=== PATIENT | female | born 1990 | race Hispanic/Latino ===

== ENCOUNTER 2017-11-02 20:00 | Emergency (ER) | payer OTHER, SELFPAY ==
[2017-11-02] VITALS (8 sets, daily range): BP systolic 103–125; BP diastolic 53–77; PULSE 96–108; RESP 17–20; TEMP 37.9–38.7; O2SAT 99–100; BMI 20.6
--- NOTE | 2017-11-02 20:17 | DI.RAD.S_ITS ---
PROCEDURE: XR CHEST 1V INDICATIONS: fever TECHNIQUE: One view of the chest was acquired. COMPARISON: [facility], , CHEST 1 VIEW, 06/28/2017, 3:45. FINDINGS: Surgical changes and devices: None. Lungs and pleura: No pleural effusions or pneumothorax. Lungs are clear. Mediastinum: Mediastinal contours appear normal. Heart size is normal. Bones and chest wall: No suspicious bony lesions. Overlying soft tissues appear unremarkable. IMPRESSION: 1. No acute cardiopulmonary disease. Dictated by: Joao Yip M.D. on 11/02/2017 at 21:00 Approved by: Joao Yip M.D. on 11/02/2017 at 21:00
--- NOTE | 2017-11-02 20:50 | ED_ITS ---
HPI - Fever General Chief Complaint: Fever Stated Complaint: FEVER/LIVER TRANSPLANT Time Seen by Provider: 11/02/17 20:17 Source: patient Mode of arrival: ambulatory Limitations: no limitations History of Present Illness HPI Narrative: Patient with history of liver transplant on tacrolimus presents to the emergency department with sudden onset fever this afternoon in the absence of any other significant symptoms. She does feel bit achy but denies any runny nose, sore throat or cough. She has had no chest pain or shortness of breath. She denies abdominal pain. She has had no dysuria, frequency or urgency. She did recently travel to [facility] for a wedding and did not wear a mask on the airplane. Just prior to her travel she had surgical procedure at [facility] to dilate a stenosed hepatic artery complaint: fever and malaise Onset (ago): hour(s) Maximum Temperature: 101.6 F Temperature Source: oral Context: recent travel and recent procedure Associated symptoms: chills and myalgias Relieving factors: nothing Exacerbating factors: nothing Treatments prior to arrival fever: acetaminophen Related Data Home Medications Medication Instructions Recorded Confirmed aspirin 325 mg PO QDAY #0 05/08/17 11/02/17 cholecalciferol (vitamin D3) 2,000 unit PO QDAY #0 05/08/17 11/02/17 [Vitamin D3] clopidogrel 75 mg PO QDAY #0 05/08/17 11/02/17 etonogestrel [Nexplanon] 68 mg SUBDERMAL ONCE PM #0 05/08/17 11/02/17 ferrous sulfate [Iron (ferrous 325 mg PO QDAY #0 05/08/17 11/02/17 sulfate)] multivitamin [Multiple Vitamins] 1 tab PO QDAY #0 05/08/17 11/02/17 tacrolimus 3.5 cap PO Q12H #0 05/08/17 11/02/17 enoxaparin 60 mg SUB-Q Q12H 11/02/17 11/02/17 magnesium oxide-Mg AA chelate 133 mg PO BID 11/02/17 11/02/17 [Ii-Frei-Frxpvdo] nitrofurantoin macrocrystal 100 mg PO BEDTIME PRN 11/02/17 11/02/17 [Macrodantin] ursodiol 250 mg PO TIDWM 05/28/18 05/28/18 Previous Rx's Medication Instructions Recorded levofloxacin [Levaquin] 500 mg PO Q24H 7 Days #7 tab 11/02/17 Allergies Allergy/AdvReac Type Severity Reaction Status Date / Time vancomycin [VANCOMYCIN] AdvReac Unknown [facility] Unverified 09/16/17 12:49 UNLESS USED AT HALF THE RATE Review of Systems Review of Systems All systems reviewed & are unremarkable except as noted in HPI and below Constitutional Reports chills, Reports fever(s), Denies lethargy and Denies weakness Eyes Denies change in vision, Denies eye discharge, Denies irritation and Denies loss of vision ENT Ears, Nose, Mouth, and Throat: Denies change in voice, Denies neck pain and Denies sore throat Cardiovascular Denies chest pain, Denies irregular heart rhythm, Denies lightheadedness, Denies palpitations, Denies dyspnea, Denies dyspnea on exertion and Denies orthopnea Respiratory Denies cough, Denies dyspnea, Denies dyspnea on exertion and Denies wheezing Gastrointestinal Gastrointestinal: Denies abdominal pain, Denies change in bowel habits, Denies diarrhea, Denies nausea and Denies vomiting Genitourinary Denies hematuria, Denies flank pain, Denies urinary incontinence and Denies urinary urgency Musculoskeletal Denies neck pain Integumentary/Breasts Denies pruritus, Denies erythema, Denies rash and Denies wounds Neurologic Denies confusion, Denies loss of vision and Denies weakness Psychiatric Denies anxiety, Denies confusion, Denies depression, Denies homicidal ideation and Denies suicidal ideation Endocrine Denies palpitations Hematologic/Lymphatic Denies easy bruising Allergic/Immunologic Denies wheezing PFSH Medical History Biliary atresia (Acute) Social History Smoking Status: Never smoker Exam Narrative Exam Narrative: Pleasant 27-year-old female in no significant or obvious distress Initial Vital Signs Initial Vital Signs: Vital Signs Temperature 101.6 F H 11/02/17 20:13 Pulse Rate 108 H 11/02/17 20:13 Respiratory Rate 20 11/02/17 20:13 Blood Pressure 125/77 H 11/02/17 20:13 Pulse Oximetry 99 11/02/17 20:13 Const General: cooperative and well developed Nutritional Appearance: well nourished Orientation: alert, awake, oriented x3 and not confused [facility] Head: normocephalic and atraumatic Ears: external ears normal and TM's normal bilaterally Nose: external nose normal and No nasal discharge Face and sinus: sinuses nontender, face symmetric, no sinus tenderness and No dry mucous membranes Mouth: oral mucosae normal and moist mucous membranes Teeth and gingiva: dentition normal Throat: tonsils normal and uvula midline Eyes General: appearance normal, both eyes and all related structures Eyelids: eyelids normal Conjunctivae: conjunctivae normal Sclera: sclerae normal Pupils: PERRL EOM: EOM intact bilaterally Resp Effort & Inspection: normal respiratory effort, able to speak in complete sentences, no respiratory distress and no use of accessory muscles Auscultation: clear to auscultation bilaterally, no rales, no rhonchi and no wheezes Cardio Rate: regular rate Rhythm: regular rhythm Heart Sounds: no click, no gallops, no murmurs and no rubs Pulses: normal peripheral pulses GI Inspection: non-distended Palpation: soft, no hepatosplenomegaly, No guarding, No pulsatile mass and No tender Auscultation: normal bowel sounds Back/Spine/Pelvis Back: No CVA tenderness Cervical Spine: cervical ROM normal and No pain with cervical ROM Thoracic/Lumbar Spine: thoracic and lumbar spine normal to inspection Skin General: no rashes or lesions noted, No jaundice and No petechiae Neuro General: alert, oriented x3, gait normal and no focal motor deficits Speech: speech normal Extrem General: full ROM, no clubbing, cyanosis or edema, no pedal edema and no calf tenderness Psych Appearance: well kempt Mental Status: mental status grossly normal Attitude: cooperative Thought Content: normal and suicidality Judgment: judgment good Course Orders Ordered: ED Orders 11/02/17 20:15 Alkaline Phosphatase Stat 11/02/17 20:17 XR chest 1V Stat 11/02/17 20:40 Alanine Aminotransferase Stat Aspartate Aminotransferase Stat Basic Metabolic Panel Stat Bilirubin Total Stat Complete Blood Count AUTO DIFF Stat Lactate (Lactic Acid) Stat Lipase Stat Procalcitonin Stat 11/02/17 20:55 Urine Microscopic Stat 11/02/17 21:20 Blood Culture Stat 11/02/17 22:28 US abdomen limited Stat Discontinued Medications Sodium Chloride (Normal Saline 0.9%) 1,000 mls @ 1,000 mls/hr IV BOLUS ONE Stop: 11/02/17 22:58 Last Infusion: 11/02/17 22:43 Dose: 0 mls/hr Admin: 11/02/17 22:08 Dose: 1,000 mls/hr Levofloxacin (Levaquin) 500 mg PO NOW ONE Stop: 11/02/17 22:43 Last Admin: 11/02/17 23:10 Dose: 500 mg Ondansetron HCl (Zofran) 4 mg IV NOW ONE Stop: 11/02/17 20:56 Last Admin: 11/02/17 21:12 Dose: 4 mg Reevaluation(s) Reevaluation #1: patient feeling better, no nausea, still achy Time: 22:19 Consultations Consultation #1: call to [facility] Hepatology. He recommends performing an abdominal ultrasound and administering antibiotics such as Levaquin. In the event the ultrasound is normal patient can go home on a prescription and call the patient service coordinator tomorrow for follow-up Time: 22:19 Vital Signs - 8 hr 11/02/17 21:04 11/02/17 21:30 11/02/17 22:07 Temperature 100.2 F H Pulse Rate 98 H 102 H 105 H Respiratory Rate 20 18 18 Blood Pressure [Right Arm] 125/75 H 118/62 109/64 Pulse Oximetry 100 99 99 11/02/17 22:30 11/02/17 23:01 11/02/17 23:30 Temperature 101.2 F H Pulse Rate 102 H 96 H 99 H Respiratory Rate 18 17 20 Blood Pressure [Right Arm] 119/70 103/53 L 113/67 Pulse Oximetry 99 99 99 MDM - Fever Differential Diagnosis Likely fever of unknown origin, pyelonephritis, viral infection and sepsis Medical Records Attestation: I reviewed the patient's medical records. Lab Data Attestation: I reviewed the patient's lab results. Result diagrams: 11/02/17 20:40 11/02/17 20:40 Lab Results 11/02/17 11/02/17 11/02/17 Range/Units 20:15 20:40 20:40 WBC 8.6 (4.5-11.0) X10^3/uL RBC 3.68 L (4.0-5.2) X10^6/uL Hgb 10.4 L (12.0-16.0) g/dL Hct 31.0 L (36-46) % MCV 84.2 (80-100) fL MCH 28.3 (26-34) PG MCHC 33.5 (30-36) % RDW 14.8 (11.6-14.8) % Plt Count 242 (150-400) X10^3/uL Neut % (Auto) 82.5 H (50-75) % Lymph % (Auto) 7.3 L (25-40) % [place] % (Auto) 9.6 (3-14) % Eos % (Auto) 0.3 L (2-4) % Baso % (Auto) 0.3 (0-2) % Neut # (Auto) 7100 H (2284-0058) /uL Sodium (137-145) mmol/L Potassium (3.4-5.1) mmol/L Chloride (98-107) mmol/L Carbon Dioxide (22-32) mmol/L BUN (7-17) mg/dL Creatinine (0.52-1.04) mg/dL Estimated GFR (>60) mL/min BUN/Creatinine Ratio (6-22) Glucose (70-100) mg/dL Lactate (0.7-2.1) mmol/L Calcium (8.4-10.2) mg/dL Total Bilirubin (0.2-1.3) mg/dL AST (14-36) IU/L ALT (9-52) IU/L Alkaline Phosphatase 246 H (38-126) U/L Lipase (23-300) U/L Procalcitonin 0.09 (<0.5) ng/mL Urine RBC (0-5/HPF) Urine WBC (0-5/HPF) Ur Squamous Epith Cells Urine Bacteria (None) Ur Culture Indicated? Micro UA Comment 11/02/17 11/02/17 11/02/17 Range/Units 20:40 20:40 20:55 WBC (4.5-11.0) X10^3/uL RBC (4.0-5.2) X10^6/uL Hgb (12.0-16.0) g/dL Hct (36-46) % MCV (80-100) fL MCH (26-34) PG MCHC (30-36) % RDW (11.6-14.8) % Plt Count (150-400) X10^3/uL Neut % (Auto) (50-75) % Lymph % (Auto) (25-40) % [place] % (Auto) (3-14) % Eos % (Auto) (2-4) % Baso % (Auto) (0-2) % Neut # (Auto) (7289-4505) /uL Sodium 139 (137-145) mmol/L Potassium 4.1 (3.4-5.1) mmol/L Chloride 103 (98-107) mmol/L Carbon Dioxide 24 (22-32) mmol/L BUN 11 (7-17) mg/dL Creatinine 0.60 (0.52-1.04) mg/dL Estimated GFR > 60.0 (>60) mL/min BUN/Creatinine Ratio 18.3 (6-22) Glucose 95 (70-100) mg/dL Lactate 0.7 (0.7-2.1) mmol/L Calcium 9.5 (8.4-10.2) mg/dL Total Bilirubin 1.0 (0.2-1.3) mg/dL AST 48 H (14-36) IU/L ALT 51 (9-52) IU/L Alkaline Phosphatase (38-126) U/L Lipase 26 (23-300) U/L Procalcitonin (<0.5) ng/mL Urine RBC None seen (0-5/HPF) Urine WBC None seen (0-5/HPF) Ur Squamous Epith Cells 1-5 /hpf Urine Bacteria Occasional (0-1) (None) Ur Culture Indicated? Cult not indicated Micro UA Comment Not Reportable Imaging Data Chest x-ray: Attestation: I personally reviewed and interpreted this imaging study as follows: Radiologist's impression: No acute process US - abdomen: Radiologist's impression: No acute process MDM Narrative Medical decision making narrative: Patient presents with low-grade fever today in the absence of other symptoms such as headache, sore throat here pain, chest pain or shortness of breath. She has recent travel that exposure to various common viral infections on an airplane. Her labs are unremarkable as is imaging and her physical exam. Conversation with hepatology and I are in agreement regarding likely benign cause of her fever. Given use of tacrolimus will place on ABX and encourage close outpatient followup Discharge Plan Departure Patient Disposition: Home, Self-Care Clinical Impression: Fever Discharge Date/Time: 11/03/17 00:05 Interventions: ED Discharge Assessment Last Done: 11/03/17 00:27 Instructions: DI for Fever (Symptom) -- Adult Prescriptions: New levofloxacin [Levaquin] 500 mg tablet 500 mg PO Q24H 7 Days Qty: 7 RF: 0 No Action tacrolimus 1 MG capsule 3.5 cap PO Q12H Qty: 0 RF: 0 multivitamin [Multiple Vitamins] 1 EACH tablet 1 tab PO QDAY Qty: 0 RF: 0 etonogestrel [Nexplanon] 68 MG implant 68 mg Subdermal ONCE PM Qty: 0 RF: 0 ferrous sulfate [Iron (ferrous sulfate)] 325 MG tablet 325 mg PO QDAY Qty: 0 RF: 0 cholecalciferol (vitamin D3) [Vitamin D3] 2,000 UNIT capsule 2,000 unit PO QDAY Qty: 0 RF: 0 aspirin 325 MG tablet 325 mg PO QDAY Qty: 0 RF: 0 clopidogrel 75 MG tablet 75 mg PO QDAY Qty: 0 RF: 0 nitrofurantoin macrocrystal [Macrodantin] 100 mg Capsule 100 mg PO BEDTIME PRN (Reason: Sexual Activity) RF: 0 ursodiol 250 mg Tablet 250 mg PO TIDWM RF: 0 enoxaparin 60 mg/0.6 mL Syringe 60 mg SUB-Q Q12H RF: 0 magnesium oxide-Mg AA chelate [[id number]] 133 mg Tablet 133 mg PO BID RF: 0
[2017-11-02 21:00] LABS: Add Manual Diff / Slide Review NO; Basophils Percent Auto 0.3 % (0-2); Eosinophils Percent Auto 0.3 % (2-4); Hemoglobin 10.4 g/dL (12.0-16.0); Lymphocytes Percent Auto 7.3 % (25-40); Mean Corpuscular HGB Conc 33.5 % (30-36); Mean Corpuscular Hemoglobin 28.3 PG (26-34); Mean Corpuscular Volume 84.2 fL (80-100); Monocytes Percent Auto 9.6 % (3-14); Neutrophils Absolute Auto 7100 /uL (3000-5900); Neutrophils Percent Auto 82.5 % (50-75); Platelet Count 242 X10^3/uL (150-400); Red Blood Cell Count 3.68 X10^6/uL (4.0-5.2); Red Cell Distribution Width 14.8 % (11.6-14.8); White Blood Cell Count 8.6 X10^3/uL (4.5-11.0)
[2017-11-02 21:11] LABS: RBC Urine None Seen (0-5/HPF); WBC Urine None Seen (0-5/HPF)
[2017-11-02 21:12] LABS: Lactate (Lactic Acid) 0.7 mmol/L (0.7-2.1)
[2017-11-02] MEDS: ONDANSETRON 4 MG/2 ML INJ IV (21:12)
[2017-11-02 21:17] LABS: Alanine Aminotransferase 51 IU/L (9-52); Aspartate Aminotransferase 48 IU/L (14-36); BUN Creatinine Ratio 18.3 (6-22); Blood Urea Nitrogen 11 mg/dL (7-17); Calcium 9.5 mg/dL (8.4-10.2); Carbon Dioxide 24 mmol/L (22-32); Chloride 103 mmol/L (98-107); Estimated Glomerular Filt Rate > 60.0 mL/min (>60); Glucose 95 mg/dL (70-100); HEMOLYSIS < 15 (0-50); Lipase 26 U/L (23-300); Potassium 4.1 mmol/L (3.4-5.1); Sodium 139 mmol/L (137-145)
[2017-11-02 21:30] LABS: Alkaline Phosphatase 246 U/L (38-126)
[2017-11-02 21:33] LABS: Procalcitonin 0.09 ng/mL (<0.5)
[2017-11-02 21:38] LABS: Squamous Epithelial Cell Urine 1-5 /HPF
[2017-11-02 21:39] LABS: Bacteria Urine Occasional (0-1); Culture Indicated Urine Cult Not Indicated
[2017-11-02] MEDS: SODIUM CHLORIDE 0.9% 1,000 ML 1000 ML IV (22:08)
--- NOTE | 2017-11-02 22:28 | DI.US.S_ITS ---
PROCEDURE: US ABDOMEN COMPLETE COMPARISON: [facility], US, ABDOMEN COMPLETE, 06/29/2017, 11:43. INDICATIONS: fever, hx Liver transplant FINDINGS: Liver is normal in size and echogenicity measures 17.8 cm in length. No focal hepatic abnormalities. Doppler assessment demonstrates patency of the main portal vein measuring 1.2 cm. Right and left portal veins patent. Mid and right hepatic vein patent and the left hepatic vein is not visualized. Hepatic artery also not visualized. Splenic vein is patent. IMPRESSION: Limited exam demonstrating normal appearance of the liver with Doppler assessment as above. Dictated by: [facility] Interpreted: Erwin Wood MD on 11/03/2017 at 8:18 Approved by: Erwin Wood M.D. on 11/03/2017 at 13:21
--- NOTE | 2017-11-02 22:42 | PC.NURSE ---
pt took her own scheduled medication for 2100 dose of tacrolimus which her spouse brought from home.
[2017-11-02] MEDS: levoFLOXacin 500 MG TABLET PO (23:10)
== END 2017-11-03 00:05 | disposition home or self-care (01) ==
PROVIDERS: Emergency Provider Emergency Medicine; PCP Internal Medicine Transplant Hepatology
DX: R50.9 Fever, unspecified (principal); Z94.4 Liver transplant status
CPT/HCPCS: 36415; 36591; 71045; 76705; 80048; 81003; 81015; 81025; 82247; 83605; 83690; 84075; 84145; 84450; 84460; 85025; 87040; 96361; 96374; 99284; J2405

== ENCOUNTER 2018-06-24 20:05 | Emergency (ER) | payer OTHER, SELFPAY ==
[2018-06-24 20:07] VITALS: BP 122/84; PULSE 85; RESP 15; TEMP 36.7; O2SAT 100
[2018-06-24 21:06] VITALS: BP 122/84; PULSE 85; RESP 15; TEMP 36.7; O2SAT 100
[2018-06-24 22:06] LABS: Add Manual Diff / Slide Review NO; Basophils Absolute Auto 0 /uL (0-100); Basophils Percent Auto 0.4 % (0-2); Eosinophils Absolute Auto 0 /uL (0-450); Eosinophils Percent Auto 0.6 % (2-4); Lymphocytes Absolute Auto 1600 /uL (1100-4500); Lymphocytes Percent Auto 19.7 % (25-40); Mean Corpuscular Hemoglobin 25.3 PG (26-34); Mean Corpuscular Volume 79.1 fL (80-100); Monocytes Absolute Auto 500 /uL (0-900); Monocytes Percent Auto 6.4 % (3-14); Neutrophils Absolute Auto 5900 /uL (1500-7000); Neutrophils Percent Auto 72.9 % (50-75); Platelet Count 241 X10^3/uL (150-400); Red Blood Cell Count 3.53 X10^6/uL (4.0-5.2); Red Cell Distribution Width 13.9 % (11.6-14.8); White Blood Cell Count 8.1 X10^3/uL (4.5-11.0)
[2018-06-24 22:08] LABS: INR 1.1 (0.9-1.3); Prothrombin Time 12.7 SECONDS (10.1-12.7)
[2018-06-24 22:10] LABS: PTT Partial Thromboplastin Tim 32 SECONDS (26.4-36.2)
[2018-06-24 22:12] LABS: Alanine Aminotransferase 56 IU/L (9-52); Albumin 3.9 g/dL (3.5-5.0); Albumin Globulin Ratio 1.6 (1.0-2.8); Alkaline Phosphatase 97 U/L (38-126); Aspartate Aminotransferase 77 IU/L (14-36); BUN Creatinine Ratio 18.6 (6-22); Bilirubin Total 0.2 mg/dL (0.2-1.3); Blood Urea Nitrogen 13 mg/dL (7-17); Calcium 8.9 mg/dL (8.4-10.2); Carbon Dioxide 24 mmol/L (22-32); Chloride 105 mmol/L (98-107); Estimated Glomerular Filt Rate > 60.0 mL/min (>60); Globulin 2.4 g/dL (1.7-4.1); Glucose 92 mg/dL (70-100); HEMOLYSIS < 15 (0-50); Lipase 52 U/L (23-300); Potassium 3.9 mmol/L (3.4-5.1); Sodium 139 mmol/L (137-145); Total Protein 6.3 g/dL (6.3-8.2)
--- NOTE | 2018-06-24 22:25 | DI.US.S_ITS ---
PROCEDURE: US VISCERAL DOPPLER LIMITED INDICATIONS: abdominal pain/elevated LFT's/liver transplant TECHNIQUE: Real-time scanning was performed of the abdominal and retroperitoneal organs, with image documentation. Color and pulse Doppler interrogation was also performed of the hepatic and splenic vessels, or of the lesion of interest. COMPARISON: [facility], , VISCERAL DOPPLER LIMITED, 05/08/2017, 19:46. FINDINGS: Liver: The transplant liver is homogeneous in echotexture and measures up to 15.5 cm in transverse dimension. Doppler: Main portal vein is patent, with luminal diameter of 10 mm (normal of 13-16 mm). On pulse Doppler interrogation, portal vein flow direction is hepatopetal. The left portal vein is not visualized. Hepatic artery Doppler waveforms demonstrate normal systolic upstrokes. The main and right veins are all patent, with expected triphasic Doppler waveforms. The left hepatic vein was not visualized. Of note, the hepatic arterial stent could not be visualized on today's examination. The splenic vein demonstrates normal flow and Doppler waveforms. Biliary ducts: No intrahepatic biliary ductal dilatation. Miscellaneous: No free abdominal fluid. IMPRESSION: 1. Normal flow identified in the main, right, and mid portal vein. The left portal vein was not visualized. 2. Normal flow in the hepatic artery. However, the stent cannot be visualized within the visualized portion of the hepatic artery. 3. Normal flow identified in the main and right hepatic veins. The left hepatic vein was not visualized. 4. Normal appearance of flow to and from the imaged transplanted liver. 5. Normal flow identified within the splenic vein. Dictated by: Balaji Augustine M.D. on 06/25/2018 at 8:53 Approved by: Balaji Augustine M.D. on 06/25/2018 at 9:26
[2018-06-24 23:28] VITALS: BP 122/70; PULSE 69; RESP 19; O2SAT 96
--- NOTE | 2018-06-28 20:23 | ED.ABDPAIN ---
HPI - Abdominal Pain General Chief Complaint: Abdominal Pain Stated Complaint: CHEST PAIN Time Seen by Provider: 06/24/18 20:53 Source: patient and family Mode of arrival: ambulatory Limitations: no limitations History of Present Illness HPI narrative: patient presents the emergency department complaining of upper abdominal pain. She denies nausea, vomiting, chest pain, shortness of breath, jaundice, fevers, diarrhea, dysuria, or back pain. She states she is mainly here because she has a history of a liver transplant, and has had cholangitis previously, among other complications. She states she was told that if she ever felt as though she was having pain in the area of her liver, she should come to the emergency department and be checked. Patient states that her liver enzymes have been normal except when she has had cholangitis. No other complaints at this time. Pain is a 4/10 currently. Related Data Home Medications Medication Instructions Recorded Confirmed aspirin 325 mg PO QDAY #0 05/08/17 11/02/17 cholecalciferol (vitamin D3) 2,000 unit PO QDAY #0 05/08/17 11/02/17 [Vitamin D3] clopidogrel 75 mg PO QDAY #0 05/08/17 11/02/17 etonogestrel [Nexplanon] 68 mg SUBDERMAL ONCE PM #0 05/08/17 11/02/17 ferrous sulfate [Iron (ferrous 325 mg PO QDAY #0 05/08/17 11/02/17 sulfate)] multivitamin [Multiple Vitamins] 1 tab PO QDAY #0 05/08/17 11/02/17 tacrolimus 3.5 cap PO Q12H #0 05/08/17 11/02/17 enoxaparin 60 mg SUB-Q Q12H 11/02/17 11/02/17 magnesium oxide-Mg AA chelate 133 mg PO BID 11/02/17 11/02/17 [Pl-Ieqe-Vubqwds] nitrofurantoin macrocrystal 100 mg PO BEDTIME PRN 11/02/17 11/02/17 [Macrodantin] ursodiol 250 mg PO TIDWM 11/02/17 11/02/17 Allergies Allergy/AdvReac Type Severity Reaction Status Date / Time levofloxacin [From Levaquin] Allergy Verified 06/24/18 20:06 vancomycin [VANCOMYCIN] AdvReac Unknown RED MAN'S Verified 06/24/18 20:06 UNLESS USED AT HALF THE RATE Review of Systems Constitutional Denies chills, Denies fever(s), Denies lethargy and Denies weakness Eyes Denies change in vision, Denies eye discharge, Denies irritation and Denies loss of vision ENT Ears, Nose, Mouth, and Throat: Denies change in voice, Denies neck pain and Denies sore throat Cardiovascular Denies chest pain, Denies irregular heart rhythm, Denies lightheadedness, Denies palpitations, Denies dyspnea, Denies dyspnea on exertion and Denies orthopnea Respiratory Denies cough, Denies dyspnea, Denies dyspnea on exertion and Denies wheezing Gastrointestinal Gastrointestinal: Reports abdominal pain, Denies change in bowel habits, Denies diarrhea, Denies nausea and Denies vomiting Genitourinary Denies hematuria, Denies flank pain, Denies urinary incontinence and Denies urinary urgency Musculoskeletal Denies neck pain Integumentary/Breasts Denies pruritus, Denies erythema, Denies rash and Denies wounds Neurologic Denies confusion, Denies loss of vision and Denies weakness Psychiatric Denies anxiety, Denies confusion, Denies depression, Denies homicidal ideation and Denies suicidal ideation Endocrine Denies palpitations Hematologic/Lymphatic Denies easy bruising Allergic/Immunologic Denies wheezing [facility] Medical History Biliary atresia (Acute) Surgical History Liver transplanted (Acute) Social History Smoking Status: Never smoker Exam Initial Vital Signs Initial Vital Signs: Vital Signs Temperature 98.1 F 06/24/18 20:07 Pulse Rate 85 06/24/18 20:07 Respiratory Rate 15 06/24/18 20:07 Blood Pressure 122/84 06/24/18 20:07 Pulse Oximetry 100 06/24/18 20:07 Const General: cooperative and well developed Nutritional Appearance: well nourished Orientation: alert, awake, oriented x3 and not confused [facility] Head: normocephalic and atraumatic Ears: external ears normal and TM's normal bilaterally Nose: external nose normal and No nasal discharge Face and sinus: sinuses nontender, face symmetric, no sinus tenderness and No dry mucous membranes Mouth: oral mucosae normal and moist mucous membranes Teeth and gingiva: dentition normal Throat: tonsils normal and uvula midline Eyes General: appearance normal, both eyes and all related structures Eyelids: eyelids normal Conjunctivae: conjunctivae normal Sclera: sclerae normal Pupils: PERRL EOM: EOM intact bilaterally Neck Neck: normal visual inspection, trachea midline, No lymphadenopathy, No midline deformity and No JVD Lymphatic: No lymphedema Chest Chest: normal inspection of the chest Resp Effort & Inspection: normal respiratory effort, able to speak in complete sentences, no respiratory distress and no use of accessory muscles Auscultation: clear to auscultation bilaterally, no rales, no rhonchi and no wheezes Cardio Rate: regular rate Rhythm: regular rhythm Heart Sounds: no click, no gallops, no murmurs and no rubs Pulses: normal peripheral pulses GI Inspection: non-distended Palpation: soft, no hepatosplenomegaly, No guarding, No pulsatile mass and tender ( mild, upper abdomen generally) Back/Spine/Pelvis Back: No CVA tenderness Cervical Spine: cervical ROM normal and No pain with cervical ROM Thoracic/Lumbar Spine: thoracic and lumbar spine normal to inspection Skin General: no rashes or lesions noted, No jaundice and No petechiae Neuro General: alert, oriented x3, gait normal and no focal motor deficits Speech: speech normal Extrem General: full ROM, no clubbing, cyanosis or edema, no pedal edema and no calf tenderness Psych Appearance: well kempt Mental Status: mental status grossly normal Attitude: cooperative Thought Content: normal and suicidality Judgment: judgment good Course Course Narrative: Patient declined symptomatic intervention in the emergency department, and preferred to be worked up at this point in time. Labs were performed, and patient was found to have mildly elevated LFTs. I spoke with Dr. Pollard, the patient's cleaner assistant, and he stated that he felt that at this time the patient could be discharged home, but should follow up with his office tomorrow. He also requested blood cultures which we did draw. I discussed all this with the patient and her , who were agreeable to this plan. We have discussed the usual indications for return. MDM - Abdominal Pain Medical Records Attestation: I reviewed the patient's medical records. Lab Data Attestation: I reviewed the patient's lab results. Result diagrams: 06/24/18 20:40 06/24/18 20:40 Lab Results 06/24/18 06/24/18 06/24/18 Range/Units 20:40 20:40 20:40 WBC 8.1 (4.5-11.0) X10^3/uL RBC 3.53 L (4.0-5.2) X10^6/uL Hgb 9.0 L (12.0-16.0) g/dL Hct 28.0 L (36-46) % MCV 79.1 L (80-100) fL MCH 25.3 L (26-34) PG MCHC 32.0 (30-36) % RDW 13.9 (11.6-14.8) % Plt Count 241 (150-400) X10^3/uL Neut % (Auto) 72.9 (50-75) % Lymph % (Auto) 19.7 L (25-40) % [place] % (Auto) 6.4 (3-14) % Eos % (Auto) 0.6 L (2-4) % Baso % (Auto) 0.4 (0-2) % Neut # (Auto) 5900 (4244-3283) /uL Lymph # (Auto) 1600 (3786-5364) /uL [place] # (Auto) 500 (0-900) /uL Eos # (Auto) 0 (0-450) /uL Baso # (Auto) 0 (0-100) /uL PT 12.7 (10.1-12.7) SECONDS INR 1.1 (0.9-1.3) APTT 32 (26.4-36.2) SECONDS Sodium 139 (137-145) mmol/L Potassium 3.9 (3.4-5.1) mmol/L Chloride 105 (98-107) mmol/L Carbon Dioxide 24 (22-32) mmol/L BUN 13 (7-17) mg/dL Creatinine 0.70 (0.52-1.04) mg/dL Estimated GFR > 60.0 (>60) mL/min BUN/Creatinine Ratio 18.6 (6-22) Glucose 92 (70-100) mg/dL Calcium 8.9 (8.4-10.2) mg/dL Total Bilirubin 0.2 (0.2-1.3) mg/dL AST 77 H (14-36) IU/L ALT 56 H (9-52) IU/L Alkaline Phosphatase 97 (38-126) U/L Total Protein 6.3 (6.3-8.2) g/dL Albumin 3.9 (3.5-5.0) g/dL Globulin 2.4 (1.7-4.1) g/dL Albumin/Globulin Ratio 1.6 (1.0-2.8) Lipase 52 (23-300) U/L Point of care testing: Point of Care Testing Test Results Negative Urine Dip Bedside Urine Glucose Negative Bedside Urine Bilirubin - Negative Bedside Urine Ketone - Negative Urine Specific [place] 1.015 Bedside Urine Occult Blood - Negative Bedside Urine pH 7.0 Bedside Urine Protein - Negative Bedside Urine Urobilinogen - Negative Bedside Urine Nitrite - Negative Bedside Urine Leukocytes - Negative Esterase Discharge Plan Departure Patient Disposition: Home Clinical Impression: Abdominal pain Discharge Date/Time: 06/25/18 00:28 Interventions: ED Discharge Assessment Last Done: 06/25/18 00:28 Instructions: DI for Abdominal Pain-Adult Activity Restrictions/Additional Instructions: Your liver function tests were mildly elevated. However, your ultrasound looked good. Your case has been discussed with Dr. Pollard, who has requested that we add blood cultures to your labs. He feels you can be discharged home tonight, but he would like to have his office call you tomorrow and see how you are doing. They may have you come in and be seen by them, or get repeat labs. If your symptoms worsen, you should return to the emergency department for further evaluation. Prescriptions: No Action tacrolimus 1 MG capsule 3.5 cap PO Q12H Qty: 0 RF: 0 multivitamin [Multiple Vitamins] 1 EACH tablet 1 tab PO QDAY Qty: 0 RF: 0 etonogestrel [Nexplanon] 68 MG implant 68 mg Subdermal ONCE PM Qty: 0 RF: 0 ferrous sulfate [Iron (ferrous sulfate)] 325 MG tablet 325 mg PO QDAY Qty: 0 RF: 0 cholecalciferol (vitamin D3) [Vitamin D3] 2,000 UNIT capsule 2,000 unit PO QDAY Qty: 0 RF: 0 aspirin 325 MG tablet 325 mg PO QDAY Qty: 0 RF: 0 clopidogrel 75 MG tablet 75 mg PO QDAY Qty: 0 RF: 0 nitrofurantoin macrocrystal [Macrodantin] 100 mg Capsule 100 mg PO BEDTIME PRN (Reason: Sexual Activity) RF: 0 ursodiol 250 mg Tablet 250 mg PO TIDWM RF: 0 enoxaparin 60 mg/0.6 mL Syringe 60 mg SUB-Q Q12H RF: 0 magnesium oxide-Mg AA chelate [[id number]-[id number]] 133 mg Tablet 133 mg PO BID RF: 0 Referrals: Renny Pollard MD [Primary Care Provider] -
--- NOTE | 2018-06-28 20:28 | ED_ITS ---
HPI - Abdominal Pain General Chief Complaint: Abdominal Pain Stated Complaint: CHEST PAIN Time Seen by Provider: 06/24/18 20:53 Source: patient and family Mode of arrival: ambulatory Limitations: no limitations History of Present Illness HPI narrative: patient presents the emergency department complaining of upper abdominal pain. She denies nausea, vomiting, chest pain, shortness of breath, jaundice, fevers, diarrhea, dysuria, or back pain. She states she is mainly here because she has a history of a liver transplant, and has had cholangitis previously, among other complications. She states she was told that if she ever felt as though she was having pain in the area of her liver, she should come to the emergency department and be checked. Patient states that her liver enzymes have been normal except when she has had cholangitis. No other complaints at this time. Pain is a 4/10 currently. Related Data Home Medications Medication Instructions Recorded Confirmed aspirin 325 mg PO QDAY #0 05/08/17 11/02/17 cholecalciferol (vitamin D3) 2,000 unit PO QDAY #0 05/08/17 11/02/17 [Vitamin D3] clopidogrel 75 mg PO QDAY #0 05/08/17 11/02/17 etonogestrel [Nexplanon] 68 mg SUBDERMAL ONCE PM #0 05/08/17 11/02/17 ferrous sulfate [Iron (ferrous 325 mg PO QDAY #0 05/08/17 11/02/17 sulfate)] multivitamin [Multiple Vitamins] 1 tab PO QDAY #0 05/08/17 11/02/17 tacrolimus 3.5 cap PO Q12H #0 05/08/17 11/02/17 enoxaparin 60 mg SUB-Q Q12H 11/02/17 11/02/17 magnesium oxide-Mg AA chelate 133 mg PO BID 11/02/17 11/02/17 [Gn-Nsao-Mkafedm] nitrofurantoin macrocrystal 100 mg PO BEDTIME PRN 11/02/17 11/02/17 [Macrodantin] ursodiol 250 mg PO TIDWM 11/02/17 11/02/17 Allergies Allergy/AdvReac Type Severity Reaction Status Date / Time levofloxacin [From Levaquin] Allergy Verified 06/24/18 20:06 vancomycin [VANCOMYCIN] AdvReac Unknown RED MAN'S Verified 06/24/18 20:06 UNLESS USED AT HALF THE RATE Review of Systems Constitutional Denies chills, Denies fever(s), Denies lethargy and Denies weakness Eyes Denies change in vision, Denies eye discharge, Denies irritation and Denies loss of vision ENT Ears, Nose, Mouth, and Throat: Denies change in voice, Denies neck pain and Denies sore throat Cardiovascular Denies chest pain, Denies irregular heart rhythm, Denies lightheadedness, Denies palpitations, Denies dyspnea, Denies dyspnea on exertion and Denies orthopnea Respiratory Denies cough, Denies dyspnea, Denies dyspnea on exertion and Denies wheezing Gastrointestinal Gastrointestinal: Reports abdominal pain, Denies change in bowel habits, Denies diarrhea, Denies nausea and Denies vomiting Genitourinary Denies hematuria, Denies flank pain, Denies urinary incontinence and Denies urinary urgency Musculoskeletal Denies neck pain Integumentary/Breasts Denies pruritus, Denies erythema, Denies rash and Denies wounds Neurologic Denies confusion, Denies loss of vision and Denies weakness Psychiatric Denies anxiety, Denies confusion, Denies depression, Denies homicidal ideation and Denies suicidal ideation Endocrine Denies palpitations Hematologic/Lymphatic Denies easy bruising Allergic/Immunologic Denies wheezing [facility] Medical History Biliary atresia (Acute) Surgical History Liver transplanted (Acute) Social History Smoking Status: Never smoker Exam Initial Vital Signs Initial Vital Signs: Vital Signs Temperature 98.1 F 06/24/18 20:07 Pulse Rate 85 06/24/18 20:07 Respiratory Rate 15 06/24/18 20:07 Blood Pressure 122/84 06/24/18 20:07 Pulse Oximetry 100 06/24/18 20:07 Const General: cooperative and well developed Nutritional Appearance: well nourished Orientation: alert, awake, oriented x3 and not confused [facility] Head: normocephalic and atraumatic Ears: external ears normal and TM's normal bilaterally Nose: external nose normal and No nasal discharge Face and sinus: sinuses nontender, face symmetric, no sinus tenderness and No dry mucous membranes Mouth: oral mucosae normal and moist mucous membranes Teeth and gingiva: dentition normal Throat: tonsils normal and uvula midline Eyes General: appearance normal, both eyes and all related structures Eyelids: eyelids normal Conjunctivae: conjunctivae normal Sclera: sclerae normal Pupils: PERRL EOM: EOM intact bilaterally Neck Neck: normal visual inspection, trachea midline, No lymphadenopathy, No midline deformity and No JVD Lymphatic: No lymphedema Chest Chest: normal inspection of the chest Resp Effort & Inspection: normal respiratory effort, able to speak in complete sentences, no respiratory distress and no use of accessory muscles Auscultation: clear to auscultation bilaterally, no rales, no rhonchi and no wheezes Cardio Rate: regular rate Rhythm: regular rhythm Heart Sounds: no click, no gallops, no murmurs and no rubs Pulses: normal peripheral pulses GI Inspection: non-distended Palpation: soft, no hepatosplenomegaly, No guarding, No pulsatile mass and tender ( mild, upper abdomen generally) Back/Spine/Pelvis Back: No CVA tenderness Cervical Spine: cervical ROM normal and No pain with cervical ROM Thoracic/Lumbar Spine: thoracic and lumbar spine normal to inspection Skin General: no rashes or lesions noted, No jaundice and No petechiae Neuro General: alert, oriented x3, gait normal and no focal motor deficits Speech: speech normal Extrem General: full ROM, no clubbing, cyanosis or edema, no pedal edema and no calf tenderness Psych Appearance: well kempt Mental Status: mental status grossly normal Attitude: cooperative Thought Content: normal and suicidality Judgment: judgment good Course Course Narrative: Patient declined symptomatic intervention in the emergency department, and preferred to be worked up at this point in time. Labs were performed, and patient was found to have mildly elevated LFTs. I spoke with Dr. Pollard, the patient's talend etl developer, and he stated that he felt that at this time the patient could be discharged home, but should follow up with his office tomorrow. He also requested blood cultures which we did draw. I discussed all this with the patient and her , who were agreeable to this plan. We have discussed the usual indications for return. MDM - Abdominal Pain Medical Records Attestation: I reviewed the patient's medical records. Lab Data Attestation: I reviewed the patient's lab results. Result diagrams: 06/24/18 20:40 06/24/18 20:40 Lab Results 06/24/18 06/24/18 06/24/18 Range/Units 20:40 20:40 20:40 WBC 8.1 (4.5-11.0) X10^3/uL RBC 3.53 L (4.0-5.2) X10^6/uL Hgb 9.0 L (12.0-16.0) g/dL Hct 28.0 L (36-46) % MCV 79.1 L (80-100) fL MCH 25.3 L (26-34) PG MCHC 32.0 (30-36) % RDW 13.9 (11.6-14.8) % Plt Count 241 (150-400) X10^3/uL Neut % (Auto) 72.9 (50-75) % Lymph % (Auto) 19.7 L (25-40) % [place] % (Auto) 6.4 (3-14) % Eos % (Auto) 0.6 L (2-4) % Baso % (Auto) 0.4 (0-2) % Neut # (Auto) 5900 (7288-8311) /uL Lymph # (Auto) 1600 (3849-1344) /uL [place] # (Auto) 500 (0-900) /uL Eos # (Auto) 0 (0-450) /uL Baso # (Auto) 0 (0-100) /uL PT 12.7 (10.1-12.7) SECONDS INR 1.1 (0.9-1.3) APTT 32 (26.4-36.2) SECONDS Sodium 139 (137-145) mmol/L Potassium 3.9 (3.4-5.1) mmol/L Chloride 105 (98-107) mmol/L Carbon Dioxide 24 (22-32) mmol/L BUN 13 (7-17) mg/dL Creatinine 0.70 (0.52-1.04) mg/dL Estimated GFR > 60.0 (>60) mL/min BUN/Creatinine Ratio 18.6 (6-22) Glucose 92 (70-100) mg/dL Calcium 8.9 (8.4-10.2) mg/dL Total Bilirubin 0.2 (0.2-1.3) mg/dL AST 77 H (14-36) IU/L ALT 56 H (9-52) IU/L Alkaline Phosphatase 97 (38-126) U/L Total Protein 6.3 (6.3-8.2) g/dL Albumin 3.9 (3.5-5.0) g/dL Globulin 2.4 (1.7-4.1) g/dL Albumin/Globulin Ratio 1.6 (1.0-2.8) Lipase 52 (23-300) U/L Point of care testing: Point of Care Testing Test Results Negative Urine Dip Bedside Urine Glucose Negative Bedside Urine Bilirubin - Negative Bedside Urine Ketone - Negative Urine Specific [place] 1.015 Bedside Urine Occult Blood - Negative Bedside Urine pH 7.0 Bedside Urine Protein - Negative Bedside Urine Urobilinogen - Negative Bedside Urine Nitrite - Negative Bedside Urine Leukocytes - Negative Esterase Discharge Plan Departure Patient Disposition: Home Clinical Impression: Abdominal pain Discharge Date/Time: 06/25/18 00:28 Interventions: ED Discharge Assessment Last Done: 06/25/18 00:28 Instructions: DI for Abdominal Pain-Adult Activity Restrictions/Additional Instructions: Your liver function tests were mildly elevated. However, your ultrasound looked good. Your case has been discussed with Dr. Pollard, who has requested that we add blood cultures to your labs. He feels you can be discharged home tonight , but he would like to have his office call you tomorrow and see how you are doing. They may have you come in and be seen by them, or get repeat labs. If your symptoms worsen, you should return to the emergency department for further evaluation. Prescriptions: No Action tacrolimus 1 MG capsule 3.5 cap PO Q12H Qty: 0 RF: 0 multivitamin [Multiple Vitamins] 1 EACH tablet 1 tab PO QDAY Qty: 0 RF: 0 etonogestrel [Nexplanon] 68 MG implant 68 mg Subdermal ONCE PM Qty: 0 RF: 0 ferrous sulfate [Iron (ferrous sulfate)] 325 MG tablet 325 mg PO QDAY Qty: 0 RF: 0 cholecalciferol (vitamin D3) [Vitamin D3] 2,000 UNIT capsule 2,000 unit PO QDAY Qty: 0 RF: 0 aspirin 325 MG tablet 325 mg PO QDAY Qty: 0 RF: 0 clopidogrel 75 MG tablet 75 mg PO QDAY Qty: 0 RF: 0 nitrofurantoin macrocrystal [Macrodantin] 100 mg Capsule 100 mg PO BEDTIME PRN (Reason: Sexual Activity) RF: 0 ursodiol 250 mg Tablet 250 mg PO TIDWM RF: 0 enoxaparin 60 mg/0.6 mL Syringe 60 mg SUB-Q Q12H RF: 0 magnesium oxide-Mg AA chelate [Pc-[id number]-Dxvzzgs] 133 mg Tablet 133 mg PO BID RF: 0 Referrals: Renny Pollard MD [Primary Care Provider] -
== END 2018-06-25 00:28 | disposition home or self-care (01) ==
PROVIDERS: Emergency Provider Emergency Medicine; PCP Internal Medicine Transplant Hepatology
DX: R10.9 Unspecified abdominal pain (principal)
CPT/HCPCS: 36415; 36591; 80053; 81003; 81025; 83690; 85025; 85610; 85730; 87040; 93976; 99282; 99284

== ENCOUNTER 2018-11-07 22:31 | Emergency (ER) | payer OTHER, SELFPAY ==
--- NOTE | 2018-11-07 | DI.RAD.S_ITS ---
PROCEDURE: XR CHEST 1V INDICATIONS: sepsis TECHNIQUE: One view of the chest was acquired. COMPARISON: [facility], CR, XR CHEST 1V, 11/02/2017, 20:23. FINDINGS: Surgical changes and devices: None. Lungs and pleura: Lungs are clear. No pleural effusions or pneumothorax. Mediastinum: Mediastinal contours appear normal. Heart size is normal. Bones and chest wall: No suspicious bony lesions. Overlying soft tissues appear unremarkable. IMPRESSION: No acute disease Dictated by: Jatin Jean M.D. on 11/08/2018 at 8:31 Approved by: Jatin Jean M.D. on 11/08/2018 at 8:33
[2018-11-07 22:41] VITALS: BP 121/78; PULSE 119; RESP 22; TEMP 39.1; O2SAT 98
--- NOTE | 2018-11-07 22:41 | ED.SKABFB ---
HPI - Skin/Abscess/Foreign Bdy General Chief complaint: Fever Stated complaint: thinks she has strep Time Seen by Provider: 11/07/18 22:33 Source: patient and family Mode of arrival: ambulatory Limitations: no limitations History of Present Illness HPI narrative: 28-year-old female nonsmoker with history of biliary atresia, liver failure and subsequent transplant at [facility] in 2014. She takes tacrolimus and is managed locally by hepatology/transplant team at [facility]. She presents to the emergency department with her in the chief complaint of fever, shaking chills, sore throat and generalized malaise. She denies nausea, vomiting or diarrhea. She denies any abdominal pain. She recently traveled to a [facility] in [place] and returned a few days ago. Associated symptoms: fever, chills and rigors Treatments prior to arrival: none Related Data Home Medications Medication Instructions Recorded Confirmed aspirin 325 mg PO QDAY #0 05/08/17 11/02/17 cholecalciferol (vitamin D3) 2,000 unit PO QDAY #0 05/08/17 11/02/17 [Vitamin D3] clopidogrel 75 mg PO QDAY #0 05/08/17 11/02/17 etonogestrel [Nexplanon] 68 mg SUBDERMAL ONCE PM #0 05/08/17 11/02/17 ferrous sulfate [Iron (ferrous 325 mg PO QDAY #0 05/08/17 11/02/17 sulfate)] multivitamin [Multiple Vitamins] 1 tab PO QDAY #0 05/08/17 11/02/17 tacrolimus 3.5 cap PO Q12H #0 05/08/17 11/02/17 enoxaparin 60 mg SUB-Q Q12H 11/02/17 11/02/17 magnesium oxide-Mg AA chelate 133 mg PO BID 11/02/17 11/02/17 [Vo-Vvdf-Gxtpeom] nitrofurantoin macrocrystal 100 mg PO BEDTIME PRN 11/02/17 11/02/17 [Macrodantin] ursodiol 250 mg PO TIDWM 11/02/17 11/02/17 Allergies Allergy/AdvReac Type Severity Reaction Status Date / Time levofloxacin [From Levaquin] Allergy Verified 06/24/18 20:06 vancomycin [VANCOMYCIN] AdvReac Unknown [facility] Verified 06/24/18 20:06 UNLESS USED AT HALF THE RATE Review of Systems Constitutional Reports chills, Reports fever(s), Denies lethargy and Reports weakness Eyes Denies change in vision, Denies eye discharge, Denies irritation and Denies loss of vision ENT Ears, Nose, Mouth, and Throat: Denies change in voice, Denies neck pain and Reports sore throat Cardiovascular Denies chest pain, Denies irregular heart rhythm, Denies lightheadedness, Denies palpitations, Denies dyspnea, Denies dyspnea on exertion and Denies orthopnea Respiratory Denies cough, Denies dyspnea, Denies dyspnea on exertion and Denies wheezing Gastrointestinal Gastrointestinal: Denies abdominal pain, Denies change in bowel habits, Denies diarrhea, Denies nausea and Denies vomiting Genitourinary Denies hematuria, Denies flank pain, Denies urinary incontinence and Denies urinary urgency Musculoskeletal Denies neck pain Integumentary/Breasts Denies pruritus, Denies erythema, Denies rash and Denies wounds Neurologic Denies confusion, Denies loss of vision and Reports weakness Psychiatric Denies anxiety, Denies confusion, Denies depression, Denies homicidal ideation and Denies suicidal ideation Endocrine Denies palpitations Hematologic/Lymphatic Denies easy bruising Allergic/Immunologic Denies wheezing [facility] Medical History Biliary atresia (Acute) Surgical History Liver transplanted (Acute) Social History Smoking Status: Never smoker Social History Smoking Status: Never smoker Exam Narrative Exam Narrative: GENERAL: 28-year-old female, chronically ill appears unwell, tachycardic, wearing a mask HEAD: Atraumatic. Normocephalic. No temporal or scalp tenderness. EYES: Pupils equal round and reactive. Extraocular motions intact. No scleral icterus. No injection or drainage. ENT: Nose without bleeding, purulent drainage or septal hematoma. Throat without erythema, tonsillar hypertrophy or exudate. Uvula midline. Airway patent. NECK: Trachea midline. No JVD or lymphadenopathy. Supple, nontender, no meningeal signs. CARDIOVASCULAR: Tachycardic but regular rhythm without murmurs, gallops, or rubs. RESPIRATORY: Clear to auscultation. Breath sounds equal bilaterally. No wheezes, rales, or rhonchi. GASTROINTESTINAL: Abdomen soft, non-tender, nondistended. No hepato-splenomegaly, or palpable masses. No guarding. EXTREMITIES: No clubbing, cyanosis, or edema. No joint tenderness, effusion, or edema noted. BACK: Nontender without deformity or crepitance. No flank tenderness. NEURO: AOx3. SKIN: No rash or erythema. Initial Vital Signs Initial Vital Signs: Vital Signs Temperature 102.3 F H 11/07/18 22:41 Pulse Rate 119 H 11/07/18 22:41 Respiratory Rate 22 11/07/18 22:41 Blood Pressure 121/78 11/07/18 22:41 Pulse Oximetry 98 11/07/18 22:41 Scores qSOFA Altered Mental Status (GCS <15): No Respiratory rate greater than/equal to 22: Yes Systolic blood pressure less than or equal to 100: No qSOFA Total: 1 0-1 Not High Risk 1-3 High risk Course Orders Ordered: Discontinued Medications Acetaminophen (Tylenol) 975 mg PO NOW ONE Stop: 11/07/18 23:13 Last Admin: 11/07/18 23:28 Dose: 975 mg Diphenhydramine HCl (Benadryl) 25 mg PO NOW ONE Stop: 11/08/18 03:12 Last Admin: 11/08/18 03:23 Dose: 25 mg Sodium Chloride (Normal Saline 0.9%) 1,000 mls @ 1,000 mls/hr IV BOLUS ONE Stop: 11/07/18 23:44 Last Infusion: 11/08/18 01:12 Dose: 0 mls/hr Admin: 11/07/18 23:08 Dose: 1,000 mls/hr Sodium Chloride (Normal Saline 0.9%) 1,000 mls @ 1,000 mls/hr IV BOLUS ONE Stop: 11/08/18 00:59 Last Infusion: 11/08/18 01:12 Dose: 0 mls/hr Admin: 11/08/18 00:01 Dose: 1,000 mls/hr Piperacillin/Tazobactam/Dextrose (Zosyn) 3.375 gm in 50 mls @ 100 mls/hr IV NOW ONE Stop: 11/08/18 01:18 Last Infusion: 11/08/18 01:56 Dose: 100 mls/hr Admin: 11/08/18 01:11 Dose: 100 mls/hr Consultations Consultation #1: I've spoken with Dr. Resendez at [facility] and have discussed the case. He recommends abdominal US, no CT, IV ABX (Zosyn) and admission for 2-3 days to further elucidate etiology call to our hospitalist whom is uncomfortable keeping an immunocompromised septic transplant patient call to [facility] to arrange transfer for higher level of care ([phone]) call to Dr. Renny Pollard (transplant database management system specialist at [facility]) whom is quick to agree with transfer of patient to [facility], but suggests I speak with transplant surgeons as dictated by their admission protocol [id number] - fellow for Dr. Dorsey accepts patient on service and will notify transfer center. Patient and notified [phone] - hospitalist calls, happy to accept. Vital Signs - 8 hr 11/07/18 22:41 11/08/18 02:58 11/08/18 03:30 Temperature 102.3 F H 98.8 F Pulse Rate 119 H 94 H Respiratory Rate 22 14 Blood Pressure 121/78 Blood Pressure [Left Arm] 120/70 Pulse Oximetry 98 99 MDM - Skin/Abscess/Foreign Bdy Lab Data Result diagrams: 11/07/18 23:05 11/07/18 23:05 Lab Results 11/07/18 11/07/18 11/07/18 Range/Units 23:05 23:05 23:05 WBC 14.7 H (4.5-11.0) X10^3/uL RBC 3.41 L (4.0-5.2) X10^6/uL Hgb 8.2 L (12.0-16.0) g/dL Hct 25.0 L (36-46) % MCV 73.3 L (80-100) fL MCH 24.0 L (26-34) PG MCHC 32.8 (30-36) % RDW 14.5 (11.6-14.8) % Plt Count 281 (150-400) X10^3/uL Neut % (Auto) 88.2 H (50-75) % Lymph % (Auto) 4.9 L (25-40) % [place] % (Auto) 5.1 (3-14) % Eos % (Auto) 1.5 L (2-4) % Baso % (Auto) 0.3 (0-2) % Neut # (Auto) 20658 H (7100-0927) /uL Lymph # (Auto) 700 L (0478-1297) /uL [place] # (Auto) 700 (0-900) /uL Eos # (Auto) 200 (0-450) /uL Baso # (Auto) 100 (0-100) /uL Sodium 137 (137-145) mmol/L Potassium 4.0 (3.4-5.1) mmol/L Chloride 104 (98-107) mmol/L Carbon Dioxide 25 (22-32) mmol/L BUN 10 (7-17) mg/dL Creatinine 0.70 (0.52-1.04) mg/dL Estimated GFR > 60.0 (>60) mL/min BUN/Creatinine Ratio 14.3 (6-22) Glucose 101 H (70-100) mg/dL Lactate (0.7-2.1) mmol/L Calcium 9.2 (8.4-10.2) mg/dL Total Bilirubin 0.7 (0.2-1.3) mg/dL AST 23 (14-36) IU/L ALT 15 (9-52) IU/L Alkaline Phosphatase 79 (38-126) U/L Total Protein 6.5 (6.3-8.2) g/dL Albumin 4.1 (3.5-5.0) g/dL Globulin 2.4 (1.7-4.1) g/dL Albumin/Globulin Ratio 1.7 (1.0-2.8) Procalcitonin < 0.05 (<0.5) ng/mL Urine Color Urine Appearance Urine pH (4.5-8.0) Ur Specific [place] (1.000-1.035) Urine Protein (Negative) Urine Glucose (UA) (Negative) g/dL Urine Ketones (NEGATIVE) Urine Occult Blood (Negative) Urine Nitrate (Negative) Urine Bilirubin (NEGATIVE) Urine Urobilinogen (0.2) E.U./dL Ur Leukocyte Esterase (NEGATIVE) Urine RBC (0-5/HPF) Urine WBC (0-5/HPF) Ur Squamous Epith Cells (0-5/HPF) Urine Bacteria (None) Ur Culture Indicated? Chlamy pneumoniae PCR (Not Detect) Adenovirus (PCR) (Not Detect) B.parapertussis DNA PCR (Not Detect) Coronavirus OC43 (PCR) (Not Detect) Coronavirus HKU1 (PCR) (Not Detect) Coronavirus 229E (PCR) (Not Detect) Coronavirus NL63 (PCR) (Not Detect) Monoscreen (Negative) Human Metapneumovir PCR (Not Detect) Influenza Type A (PCR) (Not Detect) Influenza Type B (PCR) (Not Detect) Influenza A & B (PCR) (Negative) M. pneumoniae (PCR) (Not Detect) Parainfluenza 1 (PCR) (Not Detect) Parainfluenza 2 (PCR) (Not Detect) Parainfluenza 3 (PCR) (Not Detect) Parainfluenza 4 (PCR) (Not Detect) RSV (PCR) (Not Detect) Entero/Rhino (PCR) (Not Detect) 11/07/18 11/07/18 11/07/18 Range/Units 23:05 23:05 23:05 WBC (4.5-11.0) X10^3/uL RBC (4.0-5.2) X10^6/uL Hgb (12.0-16.0) g/dL Hct (36-46) % MCV (80-100) fL MCH (26-34) PG MCHC (30-36) % RDW (11.6-14.8) % Plt Count (150-400) X10^3/uL Neut % (Auto) (50-75) % Lymph % (Auto) (25-40) % [place] % (Auto) (3-14) % Eos % (Auto) (2-4) % Baso % (Auto) (0-2) % Neut # (Auto) (3275-9441) /uL Lymph # (Auto) (0263-2194) /uL [place] # (Auto) (0-900) /uL Eos # (Auto) (0-450) /uL Baso # (Auto) (0-100) /uL Sodium (137-145) mmol/L Potassium (3.4-5.1) mmol/L Chloride (98-107) mmol/L Carbon Dioxide (22-32) mmol/L BUN (7-17) mg/dL Creatinine (0.52-1.04) mg/dL Estimated GFR (>60) mL/min BUN/Creatinine Ratio (6-22) Glucose (70-100) mg/dL Lactate 0.7 (0.7-2.1) mmol/L Calcium (8.4-10.2) mg/dL Total Bilirubin (0.2-1.3) mg/dL AST (14-36) IU/L ALT (9-52) IU/L Alkaline Phosphatase (38-126) U/L Total Protein (6.3-8.2) g/dL Albumin (3.5-5.0) g/dL Globulin (1.7-4.1) g/dL Albumin/Globulin Ratio (1.0-2.8) Procalcitonin (<0.5) ng/mL Urine Color Urine Appearance Urine pH (4.5-8.0) Ur Specific [place] (1.000-1.035) Urine Protein (Negative) Urine Glucose (UA) (Negative) g/dL Urine Ketones (NEGATIVE) Urine Occult Blood (Negative) Urine Nitrate (Negative) Urine Bilirubin (NEGATIVE) Urine Urobilinogen (0.2) E.U./dL Ur Leukocyte Esterase (NEGATIVE) Urine RBC (0-5/HPF) Urine WBC (0-5/HPF) Ur Squamous Epith Cells (0-5/HPF) Urine Bacteria (None) Ur Culture Indicated? Chlamy pneumoniae PCR (Not Detect) Adenovirus (PCR) (Not Detect) B.parapertussis DNA PCR (Not Detect) Coronavirus OC43 (PCR) (Not Detect) Coronavirus HKU1 (PCR) (Not Detect) Coronavirus 229E (PCR) (Not Detect) Coronavirus NL63 (PCR) (Not Detect) Monoscreen Negative (Negative) Human Metapneumovir PCR (Not Detect) Influenza Type A (PCR) (Not Detect) Influenza Type B (PCR) (Not Detect) Influenza A & B (PCR) Negative (Negative) M. pneumoniae (PCR) (Not Detect) Parainfluenza 1 (PCR) (Not Detect) Parainfluenza 2 (PCR) (Not Detect) Parainfluenza 3 (PCR) (Not Detect) Parainfluenza 4 (PCR) (Not Detect) RSV (PCR) (Not Detect) Entero/Rhino (PCR) (Not Detect) 06/03/19 06/03/19 Range/Units 04:45 07:40 WBC (4.5-11.0) X10^3/uL RBC (4.0-5.2) X10^6/uL Hgb (12.0-16.0) g/dL Hct (36-46) % MCV (80-100) fL MCH (26-34) PG MCHC (30-36) % RDW (11.6-14.8) % Plt Count (150-400) X10^3/uL Neut % (Auto) (50-75) % Lymph % (Auto) (25-40) % [place] % (Auto) (3-14) % Eos % (Auto) (2-4) % Baso % (Auto) (0-2) % Neut # (Auto) (7459-8947) /uL Lymph # (Auto) (7240-6085) /uL [place] # (Auto) (0-900) /uL Eos # (Auto) (0-450) /uL Baso # (Auto) (0-100) /uL Sodium (137-145) mmol/L Potassium (3.4-5.1) mmol/L Chloride (98-107) mmol/L Carbon Dioxide (22-32) mmol/L BUN (7-17) mg/dL Creatinine (0.52-1.04) mg/dL Estimated GFR (>60) mL/min BUN/Creatinine Ratio (6-22) Glucose (70-100) mg/dL Lactate (0.7-2.1) mmol/L Calcium (8.4-10.2) mg/dL Total Bilirubin (0.2-1.3) mg/dL AST (14-36) IU/L ALT (9-52) IU/L Alkaline Phosphatase (38-126) U/L Total Protein (6.3-8.2) g/dL Albumin (3.5-5.0) g/dL Globulin (1.7-4.1) g/dL Albumin/Globulin Ratio (1.0-2.8) Procalcitonin (<0.5) ng/mL Urine Color Yellow Urine Appearance Clear Urine pH 6.5 (4.5-8.0) Ur Specific [place] 1.010 (1.000-1.035) Urine Protein Negative (Negative) Urine Glucose (UA) Negative (Negative) g/dL Urine Ketones Negative (NEGATIVE) Urine Occult Blood Negative (Negative) Urine Nitrate Negative (Negative) Urine Bilirubin Negative (NEGATIVE) Urine Urobilinogen 0.2 (0.2) E.U./dL Ur Leukocyte Esterase Negative (NEGATIVE) Urine RBC None seen (0-5/HPF) Urine WBC 0-1/hpf (0-5/HPF) Ur Squamous Epith Cells 0-1 /hpf (0-5/HPF) Urine Bacteria Occasional (0-1) (None) Ur Culture Indicated? Cult not indicated Chlamy pneumoniae PCR Not detected (Not Detect) Adenovirus (PCR) Not detected (Not Detect) B.parapertussis DNA PCR Not detected (Not Detect) Coronavirus OC43 (PCR) Not detected (Not Detect) Coronavirus HKU1 (PCR) Not detected (Not Detect) Coronavirus 229E (PCR) Not detected (Not Detect) Coronavirus NL63 (PCR) Not detected (Not Detect) Monoscreen (Negative) Human Metapneumovir PCR Not detected (Not Detect) Influenza Type A (PCR) Not detected (Not Detect) Influenza Type B (PCR) Not detected (Not Detect) Influenza A & B (PCR) (Negative) M. pneumoniae (PCR) Not detected (Not Detect) Parainfluenza 1 (PCR) Not detected (Not Detect) Parainfluenza 2 (PCR) Not detected (Not Detect) Parainfluenza 3 (PCR) Not detected (Not Detect) Parainfluenza 4 (PCR) Not detected (Not Detect) RSV (PCR) Not detected (Not Detect) Entero/Rhino (PCR) Not detected (Not Detect) Point of Care Testing Rapid Strep A Negative Imaging Data US - abdomen: Radiologist's impression: Unremarkable appearance of the liver transplant parenchyma. No hematoma or abscess is identified. No ascites. No vessel thrombosis period elevated systolic and diastolic flow velocities within the stented hepatic artery are consistent with stenosis Critical Care Time Critical Care Time: Yes Total Critical Care Time: 50 Attestation: The high probability of a clinically significant, sudden or life threatening deterioration of the [cardiovascular] system(s) required my full and direct attention, intervention and personal management. The aggregate critical care time was [50] minutes. This time is in addition to time spent performing reported procedures but includes the following: [x] Data Review and interpretation [x] Patient assessment and monitoring of vital signs [x] Documentation [x] Medication orders and management Discharge Plan Departure Patient Disposition: [facility] Clinical Impression: Liver transplanted, Sepsis, Acquired immunocompromised state Discharge Date/Time: 11/08/18 08:51 Interventions: ED Discharge Assessment Last Done: 11/08/18 08:42 Prescriptions: No Action tacrolimus 1 MG capsule 3.5 cap PO Q12H Qty: 0 RF: 0 multivitamin [Multiple Vitamins] 1 EACH tablet 1 tab PO QDAY Qty: 0 RF: 0 etonogestrel [Nexplanon] 68 MG implant 68 mg Subdermal ONCE PM Qty: 0 RF: 0 ferrous sulfate [Iron (ferrous sulfate)] 325 MG tablet 325 mg PO QDAY Qty: 0 RF: 0 cholecalciferol (vitamin D3) [Vitamin D3] 2,000 UNIT capsule 2,000 unit PO QDAY Qty: 0 RF: 0 aspirin 325 MG tablet 325 mg PO QDAY Qty: 0 RF: 0 clopidogrel 75 MG tablet 75 mg PO QDAY Qty: 0 RF: 0 nitrofurantoin macrocrystal [Macrodantin] 100 mg Capsule 100 mg PO BEDTIME PRN (Reason: Sexual Activity) RF: 0 ursodiol 250 mg Tablet 250 mg PO TIDWM RF: 0 enoxaparin 60 mg/0.6 mL Syringe 60 mg SUB-Q Q12H RF: 0 magnesium oxide-Mg AA chelate [Tl-Djus-Myjoqfv] 133 mg Tablet 133 mg PO BID RF: 0 Referrals: Renny Pollard MD [Primary Care Provider] -
[2018-11-07] MEDS: SODIUM CHLORIDE 0.9% 1,000 ML 1000 ML IV (23:08)
[2018-11-07 23:14] LABS: Add Manual Diff / Slide Review NO; Basophils Absolute Auto 100 /uL (0-100); Basophils Percent Auto 0.3 % (0-2); Eosinophils Absolute Auto 200 /uL (0-450); Eosinophils Percent Auto 1.5 % (2-4); Hemoglobin 8.2 g/dL (12.0-16.0); Lymphocytes Absolute Auto 700 /uL (1100-4500); Lymphocytes Percent Auto 4.9 % (25-40); Mean Corpuscular HGB Conc 32.8 % (30-36); Mean Corpuscular Volume 73.3 fL (80-100); Monocytes Absolute Auto 700 /uL (0-900); Monocytes Percent Auto 5.1 % (3-14); Neutrophils Absolute Auto 13000 /uL (1500-7000); Neutrophils Percent Auto 88.2 % (50-75); Platelet Count 281 X10^3/uL (150-400); Red Blood Cell Count 3.41 X10^6/uL (4.0-5.2); Red Cell Distribution Width 14.5 % (11.6-14.8); White Blood Cell Count 14.7 X10^3/uL (4.5-11.0)
[2018-11-07 23:24] LABS: Lactate (Lactic Acid) 0.7 mmol/L (0.7-2.1)
--- NOTE | 2018-11-07 23:24 | PC.NURSE ---
2319 pt took home med tacro 4mg
[2018-11-07 23:25] LABS: Alanine Aminotransferase 15 IU/L (9-52); Albumin 4.1 g/dL (3.5-5.0); Albumin Globulin Ratio 1.7 (1.0-2.8); Alkaline Phosphatase 79 U/L (38-126); Aspartate Aminotransferase 23 IU/L (14-36); BUN Creatinine Ratio 14.3 (6-22); Bilirubin Total 0.7 mg/dL (0.2-1.3); Blood Urea Nitrogen 10 mg/dL (7-17); Calcium 9.2 mg/dL (8.4-10.2); Carbon Dioxide 25 mmol/L (22-32); Chloride 104 mmol/L (98-107); Estimated Glomerular Filt Rate > 60.0 mL/min (>60); Globulin 2.4 g/dL (1.7-4.1); Glucose 101 mg/dL (70-100); HEMOLYSIS < 15 (0-50); Sodium 137 mmol/L (137-145); Total Protein 6.5 g/dL (6.3-8.2)
[2018-11-07 23:27] LABS: Influenza A and B by PCR Rapid Negative (Negative)
[2018-11-07] MEDS: ACETAMINOPHEN 325 MG TABLET 975 MG PO (23:28)
[2018-11-07 23:37] LABS: Monotest Negative (Negative)
[2018-11-07 23:39] LABS: Procalcitonin < 0.05 ng/mL (<0.5)
[2018-11-08] MEDS: SODIUM CHLORIDE 0.9% 1,000 ML 1000 ML IV (00:01)
--- NOTE | 2018-11-08 00:49 | DI.US.S_ITS ---
PROCEDURE: US ABDOMEN COMPLETE INDICATIONS: LIVER TRANSPLANT TECHNIQUE: Real-time scanning was performed of the abdominal and retroperitoneal organs, with image documentation. COMPARISON: [facility], US, US ABDOMEN COMPLETE, 11/02/2017, 22:53. FINDINGS: Liver: Liver is normal in size and homogeneous in echotexture. Doppler assessment of the previously stented hepatic artery demonstrates increased systolic velocities measuring 467 cm/s. Hepatopedal flow visualized within the portal vein. Gallbladder: Surgically absent. Biliary ducts: Intrahepatic bile ducts are non-dilated. Extrahepatic bile duct caliber measures 3.0 mm. Normal is 6-7 mm or less in diameter, or 10 mm or less post-cholecystectomy. Pancreas: Visualized portions of the pancreas are sonographically normal. Spleen: Spleen is normal in size and homogeneous in echotexture. Kidneys: Kidneys are normal in size and echotexture. Right kidney measures 11.3 cm long; left kidney measures 10.9 cm long. No hydronephrosis or nephrolithiasis. No solid masses. Aorta: Visualized aorta is normal in caliber at less than 3 cm. Iliacs: Proximal common iliac arteries are normal in caliber at less than 2.5 cm. IVC: Intrahepatic inferior vena cava is patent. Miscellaneous: No free abdominal fluid. IMPRESSION: 1. Normal appearance of the liver transplant. 2. Increased systolic velocities noted within the previously stented hepatic artery measuring up to 467 cm/s indicating greater than 50% stenosis. Note: These findings are concordant with the preliminary interpretation. Dictated by: El ACKERMAN Interpreted: Erwin Wood MD on 11/08/2018 at 8:35 Approved by: Erwin Wood M.D. on 11/08/2018 at 14:46
[2018-11-08] MEDS: PIPERACILLIN-TAZO 3.375 GM/50 ML FROZ.PIGGY IV (01:11)
--- NOTE | 2018-11-08 01:39 | ED_ITS ---
HPI - Skin/Abscess/Foreign Bdy General Chief complaint: Fever Stated complaint: thinks she has strep Time Seen by Provider: 11/07/18 22:33 Source: patient and family Mode of arrival: ambulatory Limitations: no limitations History of Present Illness HPI narrative: 28-year-old female nonsmoker with history of biliary atresia, liver failure and subsequent transplant at [facility] in 2014. She takes tacrolimus and is managed locally by hepatology/transplant team at [facility]. She presents to the emergency department with her in the chief complaint of fever, shaking chills, sore throat and generalized malaise. She denies nausea, vomiting or diarrhea. She denies any abdominal pain. She recently traveled to a [employer] [facility] in [place] and returned a few days ago. Associated symptoms: fever, chills and rigors Treatments prior to arrival: none Related Data Home Medications Medication Instructions Recorded Confirmed aspirin 325 mg PO QDAY #0 05/08/17 11/02/17 cholecalciferol (vitamin D3) 2,000 unit PO QDAY #0 05/08/17 11/02/17 [Vitamin D3] clopidogrel 75 mg PO QDAY #0 05/08/17 11/02/17 etonogestrel [Nexplanon] 68 mg SUBDERMAL ONCE PM #0 05/08/17 11/02/17 ferrous sulfate [Iron (ferrous 325 mg PO QDAY #0 05/08/17 11/02/17 sulfate)] multivitamin [Multiple Vitamins] 1 tab PO QDAY #0 05/08/17 11/02/17 tacrolimus 3.5 cap PO Q12H #0 05/08/17 11/02/17 enoxaparin 60 mg SUB-Q Q12H 11/02/17 11/02/17 magnesium oxide-Mg AA chelate 133 mg PO BID 11/02/17 11/02/17 [Uu-Kyre-Vfmwvvs] nitrofurantoin macrocrystal 100 mg PO BEDTIME PRN 11/02/17 11/02/17 [Macrodantin] ursodiol 250 mg PO TIDWM 11/02/17 11/02/17 Allergies Allergy/AdvReac Type Severity Reaction Status Date / Time levofloxacin [From Levaquin] Allergy Verified 06/24/18 20:06 vancomycin [VANCOMYCIN] AdvReac Unknown RED MAN'S Verified 06/24/18 20:06 UNLESS USED AT HALF THE RATE Review of Systems Constitutional Reports chills, Reports fever(s), Denies lethargy and Reports weakness Eyes Denies change in vision, Denies eye discharge, Denies irritation and Denies loss of vision ENT Ears, Nose, Mouth, and Throat: Denies change in voice, Denies neck pain and Reports sore throat Cardiovascular Denies chest pain, Denies irregular heart rhythm, Denies lightheadedness, Denies palpitations, Denies dyspnea, Denies dyspnea on exertion and Denies orthopnea Respiratory Denies cough, Denies dyspnea, Denies dyspnea on exertion and Denies wheezing Gastrointestinal Gastrointestinal: Denies abdominal pain, Denies change in bowel habits, Denies diarrhea, Denies nausea and Denies vomiting Genitourinary Denies hematuria, Denies flank pain, Denies urinary incontinence and Denies urinary urgency Musculoskeletal Denies neck pain Integumentary/Breasts Denies pruritus, Denies erythema, Denies rash and Denies wounds Neurologic Denies confusion, Denies loss of vision and Reports weakness Psychiatric Denies anxiety, Denies confusion, Denies depression, Denies homicidal ideation and Denies suicidal ideation Endocrine Denies palpitations Hematologic/Lymphatic Denies easy bruising Allergic/Immunologic Denies wheezing [facility] Medical History Biliary atresia (Acute) Surgical History Liver transplanted (Acute) Social History Smoking Status: Never smoker Social History Smoking Status: Never smoker Exam Narrative Exam Narrative: GENERAL: 28-year-old female, chronically ill appears unwell, tachycardic, wearing a mask HEAD: Atraumatic. Normocephalic. No temporal or scalp tenderness. EYES: Pupils equal round and reactive. Extraocular motions intact. No scleral icterus. No injection or drainage. ENT: Nose without bleeding, purulent drainage or septal hematoma. Throat without erythema, tonsillar hypertrophy or exudate. Uvula midline. Airway patent. NECK: Trachea midline. No JVD or lymphadenopathy. Supple, nontender, no mening eal signs. CARDIOVASCULAR: Tachycardic but regular rhythm without murmurs, gallops, or rubs. RESPIRATORY: Clear to auscultation. Breath sounds equal bilaterally. No wheezes, rales, or rhonchi. GASTROINTESTINAL: Abdomen soft, non-tender, nondistended. No hepato- splenomegaly, or palpable masses. No guarding. EXTREMITIES: No clubbing, cyanosis, or edema. No joint tenderness, effusion, or edema noted. BACK: Nontender without deformity or crepitance. No flank tenderness. NEURO: AOx3. SKIN: No rash or erythema. Initial Vital Signs Initial Vital Signs: Vital Signs Temperature 102.3 F H 11/07/18 22:41 Pulse Rate 119 H 11/07/18 22:41 Respiratory Rate 22 11/07/18 22:41 Blood Pressure 121/78 11/07/18 22:41 Pulse Oximetry 98 11/07/18 22:41 Scores qSOFA Altered Mental Status (GCS <15): No Respiratory rate greater than/equal to 22: Yes Systolic blood pressure less than or equal to 100: No qSOFA Total: 1 0-1 Not High Risk 1-3 High risk Course Orders Ordered: Discontinued Medications Acetaminophen (Tylenol) 975 mg PO NOW ONE Stop: 11/07/18 23:13 Last Admin: 11/07/18 23:28 Dose: 975 mg Diphenhydramine HCl (Benadryl) 25 mg PO NOW ONE Stop: 11/08/18 03:12 Last Admin: 11/08/18 03:23 Dose: 25 mg Sodium Chloride (Normal Saline 0.9%) 1,000 mls @ 1,000 mls/hr IV BOLUS ONE Stop: 11/07/18 23:44 Last Infusion: 11/08/18 01:12 Dose: 0 mls/hr Admin: 11/07/18 23:08 Dose: 1,000 mls/hr Sodium Chloride (Normal Saline 0.9%) 1,000 mls @ 1,000 mls/hr IV BOLUS ONE Stop: 11/08/18 00:59 Last Infusion: 11/08/18 01:12 Dose: 0 mls/hr Admin: 11/08/18 00:01 Dose: 1,000 mls/hr Piperacillin/Tazobactam/Dextrose (Zosyn) 3.375 gm in 50 mls @ 100 mls/hr IV NOW ONE Stop: 11/08/18 01:18 Last Infusion: 11/08/18 01:56 Dose: 100 mls/hr Admin: 11/08/18 01:11 Dose: 100 mls/hr Consultations Consultation #1: I've spoken with Dr. Resendez at [facility] and have discussed the case. He recommends abdominal US, no CT, IV ABX (Zosyn) and admission for 2-3 days to further elucidate etiology call to our hospitalist whom is uncomfortable keeping an immunocompromised septic transplant patient call to [facility] to arrange transfer for higher level of care ([phone]) call to Dr. Renny Pollard (transplant regrinder operator at [facility]) whom is quick to agree with transfer of patient to [facility], but suggests I speak with transplant surgeons as dictated by their admission protocol [id number] - fellow for Dr. Dorsey accepts patient on service and will notify transfer center. Patient and notified [phone] - hospitalist calls, happy to accept. Vital Signs - 8 hr 11/07/18 22:41 11/08/18 02:58 11/08/18 03:30 Temperature 102.3 F H 98.8 F Pulse Rate 119 H 94 H Respiratory Rate 22 14 Blood Pressure 121/78 Blood Pressure [Left Arm] 120/70 Pulse Oximetry 98 99 MDM - Skin/Abscess/Foreign Bdy Lab Data Result diagrams: 11/07/18 23:05 11/07/18 23:05 Lab Results 11/07/18 11/07/18 11/07/18 Range/Units 23:05 23:05 23:05 WBC 14.7 H (4.5-11.0) X10^3/uL RBC 3.41 L (4.0-5.2) X10^6/uL Hgb 8.2 L (12.0-16.0) g/dL Hct 25.0 L (36-46) % MCV 73.3 L (80-100) fL MCH 24.0 L (26-34) PG MCHC 32.8 (30-36) % RDW 14.5 (11.6-14.8) % Plt Count 281 (150-400) X10^3/uL Neut % (Auto) 88.2 H (50-75) % Lymph % (Auto) 4.9 L (25-40) % Chaves % (Auto) 5.1 (3-14) % Eos % (Auto) 1.5 L (2-4) % Baso % (Auto) 0.3 (0-2) % Neut # (Auto) 08209 H (5488-3018) /uL Lymph # (Auto) 700 L (1419-6665) /uL Chaves # (Auto) 700 (0-900) /uL Eos # (Auto) 200 (0-450) /uL Baso # (Auto) 100 (0-100) /uL Sodium 137 (137-145) mmol/L Potassium 4.0 (3.4-5.1) mmol/L Chloride 104 (98-107) mmol/L Carbon Dioxide 25 (22-32) mmol/L BUN 10 (7-17) mg/dL Creatinine 0.70 (0.52-1.04) mg/dL Estimated GFR > 60.0 (>60) mL/min BUN/Creatinine Ratio 14.3 (6-22) Glucose 101 H (70-100) mg/dL Lactate (0.7-2.1) mmol/L Calcium 9.2 (8.4-10.2) mg/dL Total Bilirubin 0.7 (0.2-1.3) mg/dL AST 23 (14-36) IU/L ALT 15 (9-52) IU/L Alkaline Phosphatase 79 (38-126) U/L Total Protein 6.5 (6.3-8.2) g/dL Albumin 4.1 (3.5-5.0) g/dL Globulin 2.4 (1.7-4.1) g/dL Albumin/Globulin Ratio 1.7 (1.0-2.8) Procalcitonin < 0.05 (<0.5) ng/mL Urine Color Urine Appearance Urine pH (4.5-8.0) Ur Specific Morton (1.000-1.035) Urine Protein (Negative) Urine Glucose (UA) (Negative) g/dL Urine Ketones (NEGATIVE) Urine Occult Blood (Negative) Urine Nitrate (Negative) Urine Bilirubin (NEGATIVE) Urine Urobilinogen (0.2) E.U./dL Ur Leukocyte Esterase (NEGATIVE) Urine RBC (0-5/HPF) Urine WBC (0-5/HPF) Ur Squamous Epith Cells (0-5/HPF) Urine Bacteria (None) Ur Culture Indicated? Chlamy pneumoniae PCR (Not Detect) Adenovirus (PCR) (Not Detect) B.parapertussis DNA PCR (Not Detect) Coronavirus OC43 (PCR) (Not Detect) Coronavirus HKU1 (PCR) (Not Detect) Coronavirus 229E (PCR) (Not Detect) Coronavirus NL63 (PCR) (Not Detect) Monoscreen (Negative) Human Metapneumovir PCR (Not Detect) Influenza Type A (PCR) (Not Detect) Influenza Type B (PCR) (Not Detect) Influenza A & B (PCR) (Negative) M. pneumoniae (PCR) (Not Detect) Parainfluenza 1 (PCR) (Not Detect) Parainfluenza 2 (PCR) (Not Detect) Parainfluenza 3 (PCR) (Not Detect) Parainfluenza 4 (PCR) (Not Detect) RSV (PCR) (Not Detect) Entero/Rhino (PCR) (Not Detect) 11/07/18 11/07/18 11/07/18 Range/Units 23:05 23:05 23:05 WBC (4.5-11.0) X10^3/uL RBC (4.0-5.2) X10^6/uL Hgb (12.0-16.0) g/dL Hct (36-46) % MCV (80-100) fL MCH (26-34) PG MCHC (30-36) % RDW (11.6-14.8) % Plt Count (150-400) X10^3/uL Neut % (Auto) (50-75) % Lymph % (Auto) (25-40) % Chaves % (Auto) (3-14) % Eos % (Auto) (2-4) % Baso % (Auto) (0-2) % Neut # (Auto) (3024-5042) /uL Lymph # (Auto) (0315-7471) /uL Chaves # (Auto) (0-900) /uL Eos # (Auto) (0-450) /uL Baso # (Auto) (0-100) /uL Sodium (137-145) mmol/L Potassium (3.4-5.1) mmol/L Chloride (98-107) mmol/L Carbon Dioxide (22-32) mmol/L BUN (7-17) mg/dL Creatinine (0.52-1.04) mg/dL Estimated GFR (>60) mL/min BUN/Creatinine Ratio (6-22) Glucose (70-100) mg/dL Lactate 0.7 (0.7-2.1) mmol/L Calcium (8.4-10.2) mg/dL Total Bilirubin (0.2-1.3) mg/dL AST (14-36) IU/L ALT (9-52) IU/L Alkaline Phosphatase (38-126) U/L Total Protein (6.3-8.2) g/dL Albumin (3.5-5.0) g/dL Globulin (1.7-4.1) g/dL Albumin/Globulin Ratio (1.0-2.8) Procalcitonin (<0.5) ng/mL Urine Color Urine Appearance Urine pH (4.5-8.0) Ur Specific Morton (1.000-1.035) Urine Protein (Negative) Urine Glucose (UA) (Negative) g/dL Urine Ketones (NEGATIVE) Urine Occult Blood (Negative) Urine Nitrate (Negative) Urine Bilirubin (NEGATIVE) Urine Urobilinogen (0.2) E.U./dL Ur Leukocyte Esterase (NEGATIVE) Urine RBC (0-5/HPF) Urine WBC (0-5/HPF) Ur Squamous Epith Cells (0-5/HPF) Urine Bacteria (None) Ur Culture Indicated? Chlamy pneumoniae PCR (Not Detect) Adenovirus (PCR) (Not Detect) B.parapertussis DNA PCR (Not Detect) Coronavirus OC43 (PCR) (Not Detect) Coronavirus HKU1 (PCR) (Not Detect) Coronavirus 229E (PCR) (Not Detect) Coronavirus NL63 (PCR) (Not Detect) Monoscreen Negative (Negative) Human Metapneumovir PCR (Not Detect) Influenza Type A (PCR) (Not Detect) Influenza Type B (PCR) (Not Detect) Influenza A & B (PCR) Negative (Negative) M. pneumoniae (PCR) (Not Detect) Parainfluenza 1 (PCR) (Not Detect) Parainfluenza 2 (PCR) (Not Detect) Parainfluenza 3 (PCR) (Not Detect) Parainfluenza 4 (PCR) (Not Detect) RSV (PCR) (Not Detect) Entero/Rhino (PCR) (Not Detect) 11/08/18 11/08/18 Range/Units 04:45 07:40 WBC (4.5-11.0) X10^3/uL RBC (4.0-5.2) X10^6/uL Hgb (12.0-16.0) g/dL Hct (36-46) % MCV (80-100) fL MCH (26-34) PG MCHC (30-36) % RDW (11.6-14.8) % Plt Count (150-400) X10^3/uL Neut % (Auto) (50-75) % Lymph % (Auto) (25-40) % Chaves % (Auto) (3-14) % Eos % (Auto) (2-4) % Baso % (Auto) (0-2) % Neut # (Auto) (9555-0863) /uL Lymph # (Auto) (9107-6638) /uL Chaves # (Auto) (0-900) /uL Eos # (Auto) (0-450) /uL Baso # (Auto) (0-100) /uL Sodium (137-145) mmol/L Potassium (3.4-5.1) mmol/L Chloride (98-107) mmol/L Carbon Dioxide (22-32) mmol/L BUN (7-17) mg/dL Creatinine (0.52-1.04) mg/dL Estimated GFR (>60) mL/min BUN/Creatinine Ratio (6-22) Glucose (70-100) mg/dL Lactate (0.7-2.1) mmol/L Calcium (8.4-10.2) mg/dL Total Bilirubin (0.2-1.3) mg/dL AST (14-36) IU/L ALT (9-52) IU/L Alkaline Phosphatase (38-126) U/L Total Protein (6.3-8.2) g/dL Albumin (3.5-5.0) g/dL Globulin (1.7-4.1) g/dL Albumin/Globulin Ratio (1.0-2.8) Procalcitonin (<0.5) ng/mL Urine Color Yellow Urine Appearance Clear Urine pH 6.5 (4.5-8.0) Ur Specific Morton 1.010 (1.000-1.035) Urine Protein Negative (Negative) Urine Glucose (UA) Negative (Negative) g/dL Urine Ketones Negative (NEGATIVE) Urine Occult Blood Negative (Negative) Urine Nitrate Negative (Negative) Urine Bilirubin Negative (NEGATIVE) Urine Urobilinogen 0.2 (0.2) E.U./dL Ur Leukocyte Esterase Negative (NEGATIVE) Urine RBC None seen (0-5/HPF) Urine WBC 0-1/hpf (0-5/HPF) Ur Squamous Epith Cells 0-1 /hpf (0-5/HPF) Urine Bacteria Occasional (0-1) (None) Ur Culture Indicated? Cult not indicated Chlamy pneumoniae PCR Not detected (Not Detect) Adenovirus (PCR) Not detected (Not Detect) B.parapertussis DNA PCR Not detected (Not Detect) Coronavirus OC43 (PCR) Not detected (Not Detect) Coronavirus HKU1 (PCR) Not detected (Not Detect) Coronavirus 229E (PCR) Not detected (Not Detect) Coronavirus NL63 (PCR) Not detected (Not Detect) Monoscreen (Negative) Human Metapneumovir PCR Not detected (Not Detect) Influenza Type A (PCR) Not detected (Not Detect) Influenza Type B (PCR) Not detected (Not Detect) Influenza A & B (PCR) (Negative) M. pneumoniae (PCR) Not detected (Not Detect) Parainfluenza 1 (PCR) Not detected (Not Detect) Parainfluenza 2 (PCR) Not detected (Not Detect) Parainfluenza 3 (PCR) Not detected (Not Detect) Parainfluenza 4 (PCR) Not detected (Not Detect) RSV (PCR) Not detected (Not Detect) Entero/Rhino (PCR) Not detected (Not Detect) Point of Care Testing Rapid Strep A Negative Imaging Data US - abdomen: Radiologist's impression: Unremarkable appearance of the liver transplant parenchyma. No hematoma or abscess is identified. No ascites. No vessel thrombosis period elevated systolic and diastolic flow velocities within the stented hepatic artery are consistent with stenosis Critical Care Time Critical Care Time: Yes Total Critical Care Time: 50 Attestation: The high probability of a clinically significant, sudden or life threatening deterioration of the [cardiovascular] system(s) required my full and direct attention, intervention and personal management. The aggregate critical care time was [50] minutes. This time is in addition to time spent performing reported procedures but includes the following: [x] Data Review and interpretation [x] Patient assessment and monitoring of vital signs [x] Documentation [x] Medication orders and management Discharge Plan Departure Patient Disposition: [facility] Clinical Impression: Liver transplanted, Sepsis, Acquired immunocompromised state Discharge Date/Time: 11/08/18 08:51 Interventions: ED Discharge Assessment Last Done: 11/08/18 08:42 Prescriptions: No Action tacrolimus 1 MG capsule 3.5 cap PO Q12H Qty: 0 RF: 0 multivitamin [Multiple Vitamins] 1 EACH tablet 1 tab PO QDAY Qty: 0 RF: 0 etonogestrel [Nexplanon] 68 MG implant 68 mg Subdermal ONCE PM Qty: 0 RF: 0 ferrous sulfate [Iron (ferrous sulfate)] 325 MG tablet 325 mg PO QDAY Qty: 0 RF: 0 cholecalciferol (vitamin D3) [Vitamin D3] 2,000 UNIT capsule 2,000 unit PO QDAY Qty: 0 RF: 0 aspirin 325 MG tablet 325 mg PO QDAY Qty: 0 RF: 0 clopidogrel 75 MG tablet 75 mg PO QDAY Qty: 0 RF: 0 nitrofurantoin macrocrystal [Macrodantin] 100 mg Capsule 100 mg PO BEDTIME PRN (Reason: Sexual Activity) RF: 0 ursodiol 250 mg Tablet 250 mg PO TIDWM RF: 0 enoxaparin 60 mg/0.6 mL Syringe 60 mg SUB-Q Q12H RF: 0 magnesium oxide-Mg AA chelate [Nf-Aebr-Pxtcfoq] 133 mg Tablet 133 mg PO BID RF: 0 Referrals: Renny Pollard MD [Primary Care Provider] -
[2018-11-08 02:58] VITALS: TEMP 37.1
[2018-11-08] MEDS: diphenhydrAMINE 25 MG TABLET PO (03:23)
[2018-11-08 03:30] VITALS: BP 120/70; PULSE 94; RESP 14; O2SAT 99
--- NOTE | 2018-11-08 05:32 | PC.NURSE ---
report given to Meera Anders
[2018-11-08 06:00] LABS: Adenovirus Not Detected (Not Detect); Bordetella pertussis Not Detected (Not Detect); Chlamydophila pneumoniae Not Detected (Not Detect); Coronavirus 229E Not Detected (Not Detect); Coronavirus HKU1 Not Detected (Not Detect); Coronavirus NL 63 Not Detected (Not Detect); Coronavirus OC43 Not Detected (Not Detect); Human Metapneumovirus Not Detected (Not Detect); Human Rhinovirus/Enterovirus Not Detected (Not Detect); Influenza A Not Detected (Not Detect); Influenza B Not Detected (Not Detect); Mycoplasma pneumoniae Not Detected (Not Detect); Parainfluenza Virus 1 Not Detected (Not Detect); Parainfluenza Virus 2 Not Detected (Not Detect); Parainfluenza Virus 3 Not Detected (Not Detect); Parainfluenza Virus 4 Not Detected (Not Detect); Respiratory Syncytial Virus Not Detected (Not Detect)
--- NOTE | 2018-11-08 06:01 | PC.NURSE ---
pt ambulated indepentantly to bathroom. Provided a warm blanket upon return. denies further needs. Informed of transport time.
[2018-11-08 07:30] VITALS: BP 121/68; PULSE 97; RESP 16; TEMP 37; O2SAT 99
[2018-11-08 07:51] LABS: RBC Urine None Seen (0-5/HPF)
[2018-11-08 07:55] LABS: Appearance Urine UA CLEAR; Bilirubin Urine UA NEGATIVE (NEGATIVE); Color Urine UA YELLOW; Glucose Urine UA NEGATIVE (Negative); Ketones Urine UA NEGATIVE (NEGATIVE); Leukocyte Esterase Urine UA NEGATIVE (NEGATIVE); Nitrite Urine UA NEGATIVE (Negative); Occult Blood Urine UA NEGATIVE (Negative); Protein Urine UA NEGATIVE (Negative); Urobilinogen Urine UA 0.2 E.U./dL (0.2); pH Urine UA 6.5 (4.5-8.0)
[2018-11-08 08:07] LABS: Squamous Epithelial Cell Urine 0-1 /HPF (0-5/HPF); WBC Urine 0-1/HPF (0-5/HPF)
[2018-11-08 08:08] LABS: Bacteria Urine Occasional (0-1); Culture Indicated Urine Cult Not Indicated
[2018-11-08 08:41] VITALS: BP 128/76; PULSE 95; RESP 17; O2SAT 98
== END 2018-11-08 08:51 | disposition short-term general hospital (02) ==
PROVIDERS: Emergency Provider Emergency Medicine; PCP Internal Medicine Transplant Hepatology
DX: A41.9 Sepsis, unspecified organism (principal); D89.9 Disorder involving the immune mechanism, unspecified; Z94.4 Liver transplant status
CPT/HCPCS: 36415; 36591; 71045; 76700; 80053; 81001; 83605; 84145; 85025; 86318; 87040; 87400; 87633; 87880; 96361; 96365; 99284; J2543

== ENCOUNTER 2019-04-19 17:19 | Emergency (ER) | payer OTHER, SELFPAY ==
[2019-04-19 17:35] VITALS: BP 112/75; PULSE 85; RESP 16; TEMP 36.9; O2SAT 100
--- NOTE | 2019-04-19 19:05 | PC.NURSE ---
nurse check out in triage. bleeding controlled at this time. NAD
--- NOTE | 2019-04-19 20:42 | ED.WOUNDLAC ---
HPI - Wound/Laceration General Chief Complaint: Wound/Laceration Stated Complaint: ON BLOOD THINNERS LACERATION RIGHT HAND THUMB Time Seen by Provider: 04/19/19 20:42 Source: patient Mode of arrival: Ambulatory Limitations: no limitations History of Present Illness HPI narrative: The patient lacerated the right distal thumb prior to arrival at home while cutting vegetables with a mandolin. She has an avulsion laceration to the volar tip of the right thumb. She is on Plavix and aspirin. She is status post liver transplantation, and has been medicated for the past 2 years due to a postop hematoma. Fortunately did hematomas dissolve, and she is in process of weaning off these medications. However she still has significant bleeding with a laceration today. There is no numbness or weakness to the tip of the thumb. Her tetanus is up-to-date. She is right-hand dominant. Related Data Home Medications Medication Instructions Recorded Confirmed aspirin 325 mg PO QDAY #0 05/08/17 11/02/17 cholecalciferol (vitamin D3) 2,000 unit PO QDAY #0 05/08/17 11/02/17 [Vitamin D3] clopidogrel 75 mg PO QDAY #0 05/08/17 11/02/17 etonogestrel [Nexplanon] 68 mg SUBDERMAL ONCE PM #0 05/08/17 11/02/17 ferrous sulfate [Iron (ferrous 325 mg PO QDAY #0 05/08/17 11/02/17 sulfate)] multivitamin [Multiple Vitamins] 1 tab PO QDAY #0 05/08/17 11/02/17 tacrolimus 3.5 cap PO Q12H #0 05/08/17 11/02/17 enoxaparin 60 mg SUB-Q Q12H 11/02/17 11/02/17 magnesium oxide-Mg AA chelate 133 mg PO BID 11/02/17 11/02/17 [Na-Fhkl-Qklykck] nitrofurantoin macrocrystal 100 mg PO BEDTIME PRN 11/02/17 11/02/17 [Macrodantin] ursodiol 250 mg PO TIDWM 11/02/17 11/02/17 Allergies Allergy/AdvReac Type Severity Reaction Status Date / Time levofloxacin [From Levaquin] Allergy Verified 06/24/18 20:06 vancomycin [VANCOMYCIN] AdvReac Unknown RED MAN'S Verified 06/24/18 20:06 UNLESS USED AT HALF THE RATE Review of Systems Constitutional Constitutional: Denies fatigue and Denies weakness Musculoskeletal Musculoskeletal: Denies numbness and Denies tingling Integumentary/Breasts Skin/Breast: Denies erythema, Denies rash and Reports wounds (Right thumb laceration) Neurologic Neurologic: Denies numbness, Denies tingling and Denies weakness Endocrine Endocrine: Denies fatigue Patient History Medical History Biliary atresia (Acute) Surgical History Liver transplanted (Acute) Social History Smoking Status: Never smoker alcohol intake frequency: 0-2 drinks per day Substance Use Type: does not use Exam Initial Vital Signs Initial Vital Signs: Vital Signs Temperature 98.5 F 04/19/19 17:35 Pulse Rate 85 04/19/19 17:35 Respiratory Rate 16 04/19/19 17:35 Blood Pressure 112/75 04/19/19 17:35 Pulse Oximetry 100 04/19/19 17:35 Const General: cooperative, healthy appearing and comfortable Skin General: no rashes or lesions noted and No petechiae Neuro General: alert, oriented x3 and no focal motor deficits Speech: speech normal Sensory Exam: no sensory deficits noted Extrem Other: 1.5 cm avulsion laceration to the volar distal right thumb. There are no foreign bodies or contamination. Motion in the IP joint is normal. There is no nail injury. There is no evidence of tendon injury. Procedures Laceration Repair Laceration 1: Site: hand (Right thumb) Side (If applicable): right Size (cm): 1.5 Description: linear and clean Depth: simple, single layer Pre-repair: wound explored and irrigated extensively Skin layer closed with: other (Tube gauze was applied over the laceration by the patient's nurse prior to discharge.) Course Vital Signs Vital signs: Vital Signs - 8 hr 04/19/19 21:38 Pulse Rate 80 Respiratory Rate 15 Blood Pressure 119/73 Pulse Oximetry 98 Discharge Plan Departure Patient Disposition: Home Clinical Impression: Laceration of right thumb Qualifiers: Encounter type: initial encounter Damage to nail status: without damage Foreign body presence: without foreign body Qualified Code(s): S61.011A - Laceration without foreign body of right thumb without damage to nail, initial encounter Discharge Date/Time: 04/19/19 21:38 Instructions: DI for Laceration Repair With Dermabond Activity Restrictions/Additional Instructions: Keep the bandage in place for 2 days. After 2 days take the bandage off, but cover the injury when active. The glue should peel off in a few days. Return to ER as needed. Prescriptions: No Action tacrolimus 1 MG capsule 3.5 cap PO Q12H Qty: 0 RF: 0 multivitamin [Multiple Vitamins] 1 EACH tablet 1 tab PO QDAY Qty: 0 RF: 0 etonogestrel [Nexplanon] 68 MG implant 68 mg Subdermal ONCE PM Qty: 0 RF: 0 ferrous sulfate [Iron (ferrous sulfate)] 325 MG tablet 325 mg PO QDAY Qty: 0 RF: 0 cholecalciferol (vitamin D3) [Vitamin D3] 2,000 UNIT capsule 2,000 unit PO QDAY Qty: 0 RF: 0 aspirin 325 MG tablet 325 mg PO QDAY Qty: 0 RF: 0 clopidogrel 75 MG tablet 75 mg PO QDAY Qty: 0 RF: 0 nitrofurantoin macrocrystal [Macrodantin] 100 mg Capsule 100 mg PO BEDTIME PRN (Reason: Sexual Activity) RF: 0 ursodiol 250 mg Tablet 250 mg PO TIDWM RF: 0 enoxaparin 60 mg/0.6 mL Syringe 60 mg SUB-Q Q12H RF: 0 magnesium oxide-Mg AA chelate [Hw-Htlx-Nhwkgjv] 133 mg Tablet 133 mg PO BID RF: 0 Referrals: Renny Pollard MD [Primary Care Provider] -
--- NOTE | 2019-04-19 21:30 | PC.NURSE ---
RN applied non adherent dressing and tube gauze per Dr Spence instructions, bleeding controlled.
[2019-04-19 21:38] VITALS: BP 119/73; PULSE 80; RESP 15; O2SAT 98
== END 2019-04-19 21:38 | disposition home or self-care (01) ==
PROVIDERS: Emergency Provider Emergency Medicine; PCP Internal Medicine Transplant Hepatology
DX: S61.011A Laceration without foreign body of right thumb without damage to nail, initial encounter (principal); W26.8XXA Contact with other sharp object(s), not elsewhere classified, initial encounter
CPT/HCPCS: 99283

== ENCOUNTER → 2020-08-04 08:25 | Outpatient (CLI) | payer OTHER, SELFPAY ==
[2020-08-04 09:47] LABS: Add Manual Diff / Slide Review NO; Basophils Absolute Auto 0 /uL (0-100); Basophils Percent Auto 0.7 % (0-2); Eosinophils Absolute Auto 200 /uL (0-450); Eosinophils Percent Auto 2.6 % (2-4); Hematocrit 39.8 % (36-46); Hemoglobin 13.2 g/dL (12.0-16.0); Lymphocytes Absolute Auto 1900 /uL (1100-4500); Lymphocytes Percent Auto 31.6 % (25-40); Mean Corpuscular HGB Conc 33.1 % (30-36); Mean Corpuscular Volume 93.8 fL (80-100); Monocytes Absolute Auto 500 /uL (0-900); Monocytes Percent Auto 8.5 % (3-14); Neutrophils Absolute Auto 3400 /uL (1500-7000); Neutrophils Percent Auto 56.6 % (50-75); Platelet Count 250 X10^3/uL (150-400); Red Blood Cell Count 4.24 X10^6/uL (4.0-5.2); Red Cell Distribution Width 12.5 % (11.6-14.8); White Blood Cell Count 5.9 X10^3/uL (4.5-11.0)
[2020-08-04 09:49] LABS: INR 1.1 (0.9-1.3)
[2020-08-04 10:08] LABS: Alanine Aminotransferase 16 IU/L (<35); Albumin 4.3 g/dL (3.5-5.0); Albumin Globulin Ratio 1.6 (1.0-2.8); Alkaline Phosphatase 63 U/L (38-126); Aspartate Aminotransferase 28 IU/L (14-36); Bilirubin Total 0.6 mg/dL (0.2-1.3); Blood Urea Nitrogen 9 mg/dL (7-17); Calcium 9.8 mg/dL (8.4-10.2); Carbon Dioxide 22 mmol/L (22-32); Chloride 106 mmol/L (98-107); Estimated Glomerular Filt Rate > 60.0 mL/min (>60); Globulin 2.7 g/dL (1.7-4.1); Glucose 96 mg/dL (70-100); HEMOLYSIS < 15 (0-50); Magnesium 1.5 mg/dL (1.6-2.3); Phosphorous 3.6 mg/dL (2.5-4.5); Potassium 4.5 mmol/L (3.4-5.1); Sodium 137 mmol/L (137-145)
[2020-08-05 12:07] LABS: Tacrolimus None Detected ng/mL (2.0-20.0)
== END ==
PROVIDERS: PCP Internal Medicine Transplant Hepatology; Referring Provider Internal Medicine; Visit Provider Internal Medicine
DX: Z94.4 Liver transplant status (principal); D89.9 Disorder involving the immune mechanism, unspecified
CPT/HCPCS: 36415; 80053; 80197; 83735; 84100; 85025; 85610

== ENCOUNTER → 2020-08-11 08:29 | Outpatient (CLI) | payer OTHER, SELFPAY ==
[2020-08-11 09:15] LABS: Add Manual Diff / Slide Review NO; Basophils Absolute Auto 0 /uL (0-100); Basophils Percent Auto 0.5 % (0-2); Eosinophils Absolute Auto 100 /uL (0-450); Eosinophils Percent Auto 2.2 % (2-4); Hematocrit 39.9 % (36-46); Hemoglobin 13.3 g/dL (12.0-16.0); Lymphocytes Absolute Auto 1800 /uL (1100-4500); Lymphocytes Percent Auto 29.9 % (25-40); Mean Corpuscular HGB Conc 33.4 % (30-36); Mean Corpuscular Hemoglobin 31.2 PG (26-34); Mean Corpuscular Volume 93.5 fL (80-100); Monocytes Absolute Auto 400 /uL (0-900); Monocytes Percent Auto 6.7 % (3-14); Neutrophils Absolute Auto 3600 /uL (1500-7000); Neutrophils Percent Auto 60.7 % (50-75); Platelet Count 219 X10^3/uL (150-400); Red Blood Cell Count 4.27 X10^6/uL (4.0-5.2); Red Cell Distribution Width 12.5 % (11.6-14.8); White Blood Cell Count 5.9 X10^3/uL (4.5-11.0)
[2020-08-11 09:22] LABS: INR 1.1 (0.9-1.3); Prothrombin Time 12.8 SECONDS (10.1-12.7)
[2020-08-11 09:36] LABS: Alanine Aminotransferase 16 IU/L (<35); Albumin 4.3 g/dL (3.5-5.0); Albumin Globulin Ratio 1.9 (1.0-2.8); Alkaline Phosphatase 59 U/L (38-126); Aspartate Aminotransferase 20 IU/L (14-36); BUN Creatinine Ratio 17.5 (6-22); Bilirubin Total 0.4 mg/dL (0.2-1.3); Blood Urea Nitrogen 10 mg/dL (7-17); Calcium 9.5 mg/dL (8.4-10.2); Carbon Dioxide 24 mmol/L (22-32); Chloride 107 mmol/L (98-107); Estimated Glomerular Filt Rate > 60.0 mL/min (>60); Globulin 2.3 g/dL (1.7-4.1); Glucose 103 mg/dL (70-100); HEMOLYSIS < 15 (0-50); Magnesium 1.4 mg/dL (1.6-2.3); Phosphorous 3.8 mg/dL (2.5-4.5); Potassium 4.7 mmol/L (3.4-5.1); Sodium 137 mmol/L (137-145); Total Protein 6.6 g/dL (6.3-8.2)
[2020-08-12 11:36] LABS: Tacrolimus 6.9 ng/mL (2.0-20.0)
== END ==
PROVIDERS: PCP Internal Medicine Transplant Hepatology; Referring Provider Internal Medicine; Visit Provider Internal Medicine
DX: Z94.4 Liver transplant status (principal); D89.9 Disorder involving the immune mechanism, unspecified
CPT/HCPCS: 36415; 80053; 80197; 83735; 84100; 85025; 85610

== ENCOUNTER → 2020-08-24 07:33 | Outpatient (CLI) | payer OTHER, SELFPAY ==
[2020-08-24] MEDS: COVID-19 VACC #1, MRNA(MOD) 100 MCG/0.5 ML VIAL IM (07:45)
== END ==
PROVIDERS: Family Provider Internal Medicine; PCP Internal Medicine Transplant Hepatology; Visit Provider Internal Medicine
DX: Z23 Encounter for immunization (principal)
CPT/HCPCS: 0011A; 91301

== ENCOUNTER → 2020-09-15 08:17 | Outpatient (CLI) | payer OTHER, SELFPAY ==
[2020-09-15 09:15] LABS: Add Manual Diff / Slide Review NO; Basophils Absolute Auto 0 /uL (0-100); Basophils Percent Auto 0.6 % (0-2); Eosinophils Absolute Auto 100 /uL (0-450); Eosinophils Percent Auto 1.9 % (2-4); Hematocrit 39.8 % (36-46); Hemoglobin 13.1 g/dL (12.0-16.0); Lymphocytes Absolute Auto 1500 /uL (1100-4500); Lymphocytes Percent Auto 26.4 % (25-40); Mean Corpuscular Hemoglobin 30.8 PG (26-34); Mean Corpuscular Volume 93.5 fL (80-100); Monocytes Absolute Auto 400 /uL (0-900); Monocytes Percent Auto 7.2 % (3-14); Neutrophils Absolute Auto 3700 /uL (1500-7000); Neutrophils Percent Auto 63.9 % (50-75); Platelet Count 253 X10^3/uL (150-400); Red Blood Cell Count 4.26 X10^6/uL (4.0-5.2); Red Cell Distribution Width 12.3 % (11.6-14.8); White Blood Cell Count 5.9 X10^3/uL (4.5-11.0)
[2020-09-15 09:23] LABS: INR 1.1 (0.9-1.3); Prothrombin Time 12.9 SECONDS (10.1-12.7)
[2020-09-15 09:39] LABS: Alanine Aminotransferase 15 IU/L (<35); Albumin 4.4 g/dL (3.5-5.0); Albumin Globulin Ratio 1.8 (1.0-2.8); Alkaline Phosphatase 62 U/L (38-126); Aspartate Aminotransferase 21 IU/L (14-36); BUN Creatinine Ratio 17.5 (6-22); Bilirubin Total 0.3 mg/dL (0.2-1.3); Blood Urea Nitrogen 11 mg/dL (7-17); Carbon Dioxide 26 mmol/L (22-32); Chloride 104 mmol/L (98-107); Estimated Glomerular Filt Rate > 60.0 mL/min (>60); Globulin 2.4 g/dL (1.7-4.1); Glucose 90 mg/dL (70-100); HEMOLYSIS < 15 (0-50); Magnesium 1.4 mg/dL (1.6-2.3); Potassium 4.5 mmol/L (3.4-5.1); Sodium 138 mmol/L (137-145); Total Protein 6.8 g/dL (6.3-8.2)
[2020-09-16 11:55] LABS: Tacrolimus 7.7 ng/mL (2.0-20.0)
== END ==
PROVIDERS: Family Provider Internal Medicine; PCP Internal Medicine Transplant Hepatology; Referring Provider Internal Medicine; Visit Provider Internal Medicine
DX: Z94.4 Liver transplant status (principal)
CPT/HCPCS: 36415; 80053; 80197; 83735; 85025; 85610

== ENCOUNTER → 2020-09-21 07:33 | Outpatient (CLI) | payer OTHER, SELFPAY ==
[2020-09-21] MEDS: COVID-19 VACC #2, MRNA(MOD) 100 MCG/0.5 ML VIAL IM (07:40)
== END ==
PROVIDERS: Family Provider Internal Medicine; PCP Internal Medicine Transplant Hepatology; Visit Provider Internal Medicine
DX: Z23 Encounter for immunization (principal)
CPT/HCPCS: 0012A; 91301

== ENCOUNTER → 2020-10-13 08:38 | Outpatient (CLI) | payer OTHER, SELFPAY ==
[2020-10-13 09:27] LABS: Add Manual Diff / Slide Review NO; Basophils Absolute Auto 0 /uL (0-100); Basophils Percent Auto 0.8 % (0-2); Eosinophils Absolute Auto 200 /uL (0-450); Eosinophils Percent Auto 4.1 % (2-4); Hematocrit 39.5 % (36-46); Hemoglobin 13.4 g/dL (12.0-16.0); Lymphocytes Absolute Auto 1600 /uL (1100-4500); Lymphocytes Percent Auto 27.1 % (25-40); Mean Corpuscular HGB Conc 33.9 % (30-36); Mean Corpuscular Hemoglobin 31.3 PG (26-34); Mean Corpuscular Volume 92.4 fL (80-100); Monocytes Absolute Auto 400 /uL (0-900); Monocytes Percent Auto 6.7 % (3-14); Neutrophils Absolute Auto 3700 /uL (1500-7000); Neutrophils Percent Auto 61.3 % (50-75); Platelet Count 244 X10^3/uL (150-400); Red Blood Cell Count 4.27 X10^6/uL (4.0-5.2); Red Cell Distribution Width 12.1 % (11.6-14.8); White Blood Cell Count 6.1 X10^3/uL (4.5-11.0)
[2020-10-13 09:43] LABS: Alanine Aminotransferase 15 IU/L (<35); Albumin 4.5 g/dL (3.5-5.0); Albumin Globulin Ratio 1.7 (1.0-2.8); Alkaline Phosphatase 73 U/L (38-126); Aspartate Aminotransferase 23 IU/L (14-36); Bilirubin Total 0.9 mg/dL (0.2-1.3); Blood Urea Nitrogen 11 mg/dL (7-17); Calcium 10.3 mg/dL (8.4-10.2); Carbon Dioxide 27 mmol/L (22-32); Chloride 103 mmol/L (98-107); Estimated Glomerular Filt Rate > 60.0 mL/min (>60); Globulin 2.6 g/dL (1.7-4.1); Glucose 102 mg/dL (70-100); HEMOLYSIS < 15 (0-50); Magnesium 1.4 mg/dL (1.6-2.3); Potassium 5.1 mmol/L (3.4-5.1); Sodium 137 mmol/L (137-145); Total Protein 7.1 g/dL (6.3-8.2)
[2020-10-13 09:46] LABS: INR 1.1 (0.9-1.3); Prothrombin Time 12.4 SECONDS (10.1-12.7)
[2020-10-14 11:52] LABS: Tacrolimus 9.2 ng/mL (2.0-20.0)
== END ==
PROVIDERS: Family Provider Internal Medicine; PCP Family Medicine; Referring Provider Internal Medicine; Visit Provider Internal Medicine
DX: Z94.4 Liver transplant status (principal)
CPT/HCPCS: 36415; 80053; 80197; 83735; 85025; 85610

== ENCOUNTER → 2020-12-08 10:06 | Outpatient (CLI) | payer OTHER, SELFPAY ==
[2020-12-08 12:20] LABS: Add Manual Diff / Slide Review NO; Basophils Absolute Auto 0 /uL (0-100); Basophils Percent Auto 0.3 % (0-2); Eosinophils Absolute Auto 100 /uL (0-450); Hematocrit 37.1 % (36-46); Hemoglobin 12.5 g/dL (12.0-16.0); Lymphocytes Absolute Auto 1400 /uL (1100-4500); Lymphocytes Percent Auto 13.9 % (25-40); Mean Corpuscular HGB Conc 33.7 % (30-36); Mean Corpuscular Volume 92.1 fL (80-100); Monocytes Absolute Auto 500 /uL (0-900); Monocytes Percent Auto 5.2 % (3-14); Neutrophils Absolute Auto 8000 /uL (1500-7000); Neutrophils Percent Auto 79.6 % (50-75); Platelet Count 247 X10^3/uL (150-400); Red Blood Cell Count 4.03 X10^6/uL (4.0-5.2); Red Cell Distribution Width 12.3 % (11.6-14.8); White Blood Cell Count 10.1 X10^3/uL (4.5-11.0)
[2020-12-08 12:25] LABS: INR 1.1 (0.9-1.3); Prothrombin Time 12.5 SECONDS (10.1-12.7)
[2020-12-08 12:32] LABS: Alanine Aminotransferase 14 IU/L (<35); Albumin 3.9 g/dL (3.5-5.0); Albumin Globulin Ratio 1.6 (1.0-2.8); Alkaline Phosphatase 53 U/L (38-126); Aspartate Aminotransferase 18 IU/L (14-36); Bilirubin Total 0.6 mg/dL (0.2-1.3); Blood Urea Nitrogen 7 mg/dL (7-17); Calcium 9.5 mg/dL (8.4-10.2); Carbon Dioxide 21 mmol/L (22-32); Chloride 106 mmol/L (98-107); Estimated Glomerular Filt Rate > 60.0 mL/min (>60); Globulin 2.5 g/dL (1.7-4.1); Glucose 100 mg/dL (70-100); HEMOLYSIS < 15 (0-50); Magnesium 1.4 mg/dL (1.6-2.3); Potassium 3.8 mmol/L (3.4-5.1); Sodium 136 mmol/L (137-145); Total Protein 6.4 g/dL (6.3-8.2)
[2020-12-09 11:09] LABS: Tacrolimus 5.3 ng/mL (2.0-20.0)
== END ==
PROVIDERS: Family Provider Internal Medicine; PCP Family Medicine; Referring Provider Internal Medicine; Visit Provider Internal Medicine
DX: Z94.4 Liver transplant status (principal); Z79.899 Other long term (current) drug therapy
CPT/HCPCS: 36415; 80053; 80197; 83735; 85025; 85610

== ENCOUNTER → 2021-03-09 08:11 | Outpatient (CLI) | payer OTHER, SELFPAY ==
[2021-03-09 09:16] LABS: Add Manual Diff / Slide Review NO; Basophils Absolute Auto 0 /uL (0-100); Basophils Percent Auto 0.1 % (0-2); Eosinophils Absolute Auto 100 /uL (0-450); Eosinophils Percent Auto 0.8 % (2-4); Hematocrit 34.2 % (36-46); Hemoglobin 11.6 g/dL (12.0-16.0); Lymphocytes Absolute Auto 1600 /uL (1100-4500); Mean Corpuscular HGB Conc 33.9 % (30-36); Mean Corpuscular Hemoglobin 31.5 PG (26-34); Mean Corpuscular Volume 93.1 fL (80-100); Monocytes Absolute Auto 600 /uL (0-900); Monocytes Percent Auto 4.3 % (3-14); Neutrophils Absolute Auto 11900 /uL (1500-7000); Neutrophils Percent Auto 83.8 % (50-75); Platelet Count 230 X10^3/uL (150-400); Red Blood Cell Count 3.68 X10^6/uL (4.0-5.2); Red Cell Distribution Width 12.3 % (11.6-14.8); White Blood Cell Count 14.2 X10^3/uL (4.5-11.0)
[2021-03-09 09:22] LABS: Prothrombin Time 10.8 SECONDS (10.1-12.7)
[2021-03-09 09:39] LABS: Alanine Aminotransferase 10 IU/L (<35); Albumin 3.5 g/dL (3.5-5.0); Albumin Globulin Ratio 1.4 (1.0-2.8); Alkaline Phosphatase 56 U/L (38-126); Aspartate Aminotransferase 29 IU/L (14-36); BUN Creatinine Ratio 10.8 (6-22); Bilirubin Total 0.6 mg/dL (0.2-1.3); Blood Urea Nitrogen 4 mg/dL (7-17); Carbon Dioxide 24 mmol/L (22-32); Chloride 106 mmol/L (98-107); Estimated Glomerular Filt Rate > 60.0 mL/min (>60); Globulin 2.5 g/dL (1.7-4.1); Glucose 73 mg/dL (70-100); Magnesium 1.3 mg/dL (1.6-2.3); Potassium 4.9 mmol/L (3.4-5.1); Sodium 135 mmol/L (137-145)
[2021-03-09 09:46] LABS: HEMOLYSIS 97 (0-50)
[2021-03-10 08:30] LABS: Tacrolimus 4.8 ng/mL (2.0-20.0)
== END ==
PROVIDERS: Family Provider Internal Medicine; PCP Family Medicine; Referring Provider Internal Medicine; Visit Provider Internal Medicine
DX: Z94.4 Liver transplant status (principal)
CPT/HCPCS: 36415; 80053; 80197; 83735; 85025; 85610

== ENCOUNTER → 2021-03-14 11:29 | Outpatient (CLI) | payer OTHER, SELFPAY ==
[2021-03-14 12:19] LABS: Appearance Urine UA CLEAR; Bilirubin Urine UA NEGATIVE (NEGATIVE); Color Urine UA YELLOW; Glucose Urine UA NEGATIVE (Negative); Ketones Urine UA NEGATIVE (NEGATIVE); Leukocyte Esterase Urine UA NEGATIVE (NEGATIVE); Nitrite Urine UA NEGATIVE (Negative); Occult Blood Urine UA 3+ (Negative); Protein Urine UA NEGATIVE (Negative); Specific Gravity Urine UA 1.015 (1.000-1.035); Urobilinogen Urine UA 0.2 E.U./dL (0.2)
[2021-03-14 12:20] LABS: Add Manual Diff / Slide Review NO; Basophils Absolute Auto 0 /uL (0-100); Basophils Percent Auto 0.1 % (0-2); Eosinophils Absolute Auto 100 /uL (0-450); Eosinophils Percent Auto 0.5 % (2-4); Hematocrit 32.1 % (36-46); Hemoglobin 10.7 g/dL (12.0-16.0); Lymphocytes Absolute Auto 1300 /uL (1100-4500); Lymphocytes Percent Auto 9.5 % (25-40); Mean Corpuscular HGB Conc 33.2 % (30-36); Mean Corpuscular Hemoglobin 30.6 PG (26-34); Mean Corpuscular Volume 92.2 fL (80-100); Monocytes Absolute Auto 800 /uL (0-900); Monocytes Percent Auto 5.7 % (3-14); Neutrophils Absolute Auto 11300 /uL (1500-7000); Neutrophils Percent Auto 84.2 % (50-75); Platelet Count 205 X10^3/uL (150-400); Red Blood Cell Count 3.49 X10^6/uL (4.0-5.2); Red Cell Distribution Width 12.4 % (11.6-14.8); White Blood Cell Count 13.4 X10^3/uL (4.5-11.0)
[2021-03-14 12:33] LABS: Bacteria Urine Few (2-10); Culture Indicated Urine Cult Not Indicated; RBC Urine 30-100/HPF (0-5/HPF); WBC Urine 0-1/HPF (0-5/HPF)
== END ==
PROVIDERS: Family Provider Internal Medicine; PCP Family Medicine; Referring Provider Student in an Organized Health Care Education/Training Program; Visit Provider Student in an Organized Health Care Education/Training Program
DX: Z94.4 Liver transplant status (principal); N20.0 Calculus of kidney
CPT/HCPCS: 36415; 81001; 85025

== ENCOUNTER → 2021-05-11 09:17 | Outpatient (CLI) | payer OTHER, SELFPAY ==
[2021-05-11 10:27] LABS: Add Manual Diff / Slide Review NO; Basophils Absolute Auto 0 /uL (0-100); Basophils Percent Auto 0.2 % (0-2); Eosinophils Absolute Auto 100 /uL (0-450); Eosinophils Percent Auto 0.9 % (2-4); Hematocrit 31.7 % (36-46); Hemoglobin 10.7 g/dL (12.0-16.0); Lymphocytes Absolute Auto 1200 /uL (1100-4500); Lymphocytes Percent Auto 11.8 % (25-40); Mean Corpuscular HGB Conc 33.6 % (30-36); Mean Corpuscular Hemoglobin 29.3 PG (26-34); Mean Corpuscular Volume 87.1 fL (80-100); Monocytes Absolute Auto 500 /uL (0-900); Monocytes Percent Auto 4.7 % (3-14); Neutrophils Absolute Auto 8300 /uL (1500-7000); Neutrophils Percent Auto 82.4 % (50-75); Platelet Count 250 X10^3/uL (150-400); Red Blood Cell Count 3.64 X10^6/uL (4.0-5.2); Red Cell Distribution Width 12.3 % (11.6-14.8); White Blood Cell Count 10.1 X10^3/uL (4.5-11.0)
[2021-05-11 10:48] LABS: Prothrombin Time 10.9 SECONDS (10.1-12.7)
[2021-05-11 10:59] LABS: Alanine Aminotransferase 9 IU/L (<35); Albumin 3.1 g/dL (3.5-5.0); Albumin Globulin Ratio 1.2 (1.0-2.8); Alkaline Phosphatase 82 U/L (38-126); Aspartate Aminotransferase 17 IU/L (14-36); Bilirubin Total 0.5 mg/dL (0.2-1.3); Blood Urea Nitrogen 6 mg/dL (7-17); Calcium 8.8 mg/dL (8.4-10.2); Carbon Dioxide 26 mmol/L (22-32); Chloride 105 mmol/L (98-107); Estimated Glomerular Filt Rate > 60.0 mL/min (>60); Globulin 2.6 g/dL (1.7-4.1); Glucose 72 mg/dL (70-100); HEMOLYSIS < 15 (0-50); Magnesium 1.5 mg/dL (1.6-2.3); Potassium 4.4 mmol/L (3.4-5.1); Sodium 135 mmol/L (137-145); Total Protein 5.7 g/dL (6.3-8.2)
[2021-05-12 10:35] LABS: Tacrolimus 3.6 ng/mL (2.0-20.0)
== END ==
PROVIDERS: Family Provider Internal Medicine; PCP Family Medicine; Referring Provider Internal Medicine; Visit Provider Internal Medicine
DX: Z94.4 Liver transplant status (principal)
CPT/HCPCS: 36415; 80053; 80197; 83735; 85025; 85610

== ENCOUNTER → 2022-02-05 09:09 | Outpatient (CLI) | payer OTHER, SELFPAY ==
[2022-02-05 11:03] LABS: Add Manual Diff / Slide Review NO; Basophils Absolute Auto 0 /uL (0-100); Basophils Percent Auto 0.4 % (0-2); Eosinophils Absolute Auto 200 /uL (0-450); Eosinophils Percent Auto 2.9 % (2-4); Hematocrit 36.9 % (36-46); Hemoglobin 12.4 g/dL (12.0-16.0); Lymphocytes Absolute Auto 1400 /uL (1100-4500); Lymphocytes Percent Auto 26.3 % (25-40); Mean Corpuscular HGB Conc 33.5 % (30-36); Mean Corpuscular Hemoglobin 30.2 PG (26-34); Mean Corpuscular Volume 90.3 fL (80-100); Monocytes Absolute Auto 400 /uL (0-900); Monocytes Percent Auto 7.7 % (3-14); Neutrophils Absolute Auto 3300 /uL (1500-7000); Neutrophils Percent Auto 62.7 % (50-75); Platelet Count 231 X10^3/uL (150-400); Red Blood Cell Count 4.09 X10^6/uL (4.0-5.2); Red Cell Distribution Width 12.9 % (11.6-14.8); White Blood Cell Count 5.3 X10^3/uL (4.5-11.0)
[2022-02-05 11:24] LABS: Alanine Aminotransferase 13 IU/L (<35); Albumin Globulin Ratio 1.5 (1.0-2.8); Alkaline Phosphatase 94 U/L (38-126); Aspartate Aminotransferase 19 IU/L (14-36); Bilirubin Total 0.5 mg/dL (0.2-1.3); Blood Urea Nitrogen 11 mg/dL (7-17); Calcium 8.9 mg/dL (8.4-10.2); Carbon Dioxide 24 mmol/L (22-32); Chloride 105 mmol/L (98-107); Estimated Glomerular Filt Rate > 60 mL/min (>60); Globulin 2.7 g/dL (1.7-4.1); Glucose 81 mg/dL (70-100); HEMOLYSIS < 15 (0-50); Magnesium 1.3 mg/dL (1.6-2.3); Phosphorous 3.9 mg/dL (2.5-4.5); Potassium 4.7 mmol/L (3.4-5.1); Sodium 136 mmol/L (137-145); Total Protein 6.7 g/dL (6.3-8.2)
[2022-02-06 09:08] LABS: Tacrolimus 7.6 ng/mL (2.0-20.0)
== END ==
PROVIDERS: Family Provider Internal Medicine; Referring Provider Surgery; Visit Provider Surgery
DX: Z94.4 Liver transplant status (principal)
CPT/HCPCS: 36415; 80053; 80197; 83735; 84100; 85025

== ENCOUNTER → 2022-03-21 09:09 | Outpatient (CLI) | payer OTHER, SELFPAY ==
[2022-03-21 09:56] LABS: Add Manual Diff / Slide Review NO; Basophils Absolute Auto 0 /uL (0-100); Basophils Percent Auto 0.5 % (0-2); Eosinophils Absolute Auto 200 /uL (0-450); Eosinophils Percent Auto 3.3 % (2-4); Hematocrit 36.2 % (36-46); Hemoglobin 12.5 g/dL (12.0-16.0); Lymphocytes Absolute Auto 1100 /uL (1100-4500); Lymphocytes Percent Auto 22.6 % (25-40); Mean Corpuscular HGB Conc 34.6 % (30-36); Mean Corpuscular Hemoglobin 31.1 PG (26-34); Mean Corpuscular Volume 89.9 fL (80-100); Monocytes Absolute Auto 300 /uL (0-900); Monocytes Percent Auto 6.1 % (3-14); Neutrophils Absolute Auto 3400 /uL (1500-7000); Neutrophils Percent Auto 67.5 % (50-75); Platelet Count 244 X10^3/uL (150-400); Red Blood Cell Count 4.03 X10^6/uL (4.0-5.2); Red Cell Distribution Width 12.6 % (11.6-14.8)
[2022-03-21 10:25] LABS: Alanine Aminotransferase 12 IU/L (<35); Albumin 3.9 g/dL (3.5-5.0); Albumin Globulin Ratio 1.5 (1.0-2.8); Alkaline Phosphatase 91 U/L (38-126); Aspartate Aminotransferase 17 IU/L (14-36); BUN Creatinine Ratio 12.7 (6-22); Bilirubin Total 0.4 mg/dL (0.2-1.3); Blood Urea Nitrogen 7 mg/dL (7-17); Carbon Dioxide 26 mmol/L (22-32); Chloride 104 mmol/L (98-107); Estimated Glomerular Filt Rate > 60 mL/min (>60); Globulin 2.6 g/dL (1.7-4.1); Glucose 89 mg/dL (70-100); HEMOLYSIS < 15 (0-50); Magnesium 1.5 mg/dL (1.6-2.3); Phosphorous 3.7 mg/dL (2.5-4.5); Potassium 4.3 mmol/L (3.4-5.1); Sodium 139 mmol/L (137-145); Total Protein 6.5 g/dL (6.3-8.2)
[2022-03-21 10:41] LABS: HCG Quantitative /Beta subunit 2248.4 mIU/mL
[2022-03-24 08:29] LABS: Tacrolimus 6.2 ng/mL (2.0-20.0)
== END ==
PROVIDERS: Family Provider Internal Medicine; Referring Provider Registered Nurse Perinatal; Visit Provider Registered Nurse Perinatal
DX: O09.90 Supervision of high risk pregnancy, unspecified, unspecified trimester (principal); Z94.4 Liver transplant status
CPT/HCPCS: 36415; 80053; 80197; 83735; 84100; 84702; 85025

== ENCOUNTER 2022-06-13 07:47 | Emergency (ER) | payer OTHER, SELFPAY ==
[2022-06-13] VITALS (12 sets, daily range): BP systolic 102–120; BP diastolic 62–77; PULSE 95–132; RESP 18–32; TEMP 37.1; O2SAT 97–98; BMI 21.6
--- NOTE | 2022-06-13 08:01 | DI.RAD.S_ITS ---
PROCEDURE: XR CHEST 1V INDICATIONS: chest pain TECHNIQUE: One view of the chest was acquired. COMPARISON: [facility], CR, XR CHEST 1V, 11/07/2018, 23:55. FINDINGS: Surgical changes and devices: None. Lungs and pleura: Lungs are clear. No pleural effusions or pneumothorax. Mediastinum: Mediastinal contours appear normal. Heart size is normal. Bones and chest wall: No suspicious bony lesions. Overlying soft tissues appear unremarkable. IMPRESSION: No acute pulmonary process. Dictated by: Azul Ren M.D. on 06/13/2022 at 8:21 Approved by: Azul Ren M.D. on 06/13/2022 at 8:22
--- NOTE | 2022-06-13 08:04 | ED_ITS ---
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 She says she was lying in bed reading last night around 6:00 p.m. when she felt like chest discomfort. She feels like she can not take a deep breath. She was uncomfortable to lay down. She is not had any fever or chills. No cough sore throat no peripheral edema. She does have some epigastric pain she is previously had some no abdominal pain but this really feels like his in her chest. She is not a smoker. She is currently actively trying to get for a 2nd time. Her only position of comfort is sitting up right with mild forward position. Related Data Home Medications Medication Instructions Recorded Confirmed cholecalciferol (vitamin D3) 50 2,000 unit PO QDAY ##0 05/08/17 09/24/21 mcg (2,000 unit) capsule (Vitamin D3) ferrous sulfate 325 mg (65 mg 325 mg PO QDAY ##0 05/08/17 09/24/21 iron) tablet (Iron (ferrous sulfate)) multivitamin (Multiple Vitamins 1 tab PO QDAY ##0 05/08/17 09/24/21 tablet) tacrolimus 1 mg capsule, 3.5 cap PO Q12H ##0 05/08/17 09/24/21 immediate-release magnesium oxide-magnesium amino 133 mg PO BID 11/02/17 09/24/21 acid chelate 133 mg tablet (Rm-[id number]-Owqxprs) nitrofurantoin macrocrystal 100 mg 100 mg PO BEDTIME PRN Sexual 11/02/17 09/24/21 capsule (Macrodantin) Activity aspirin 81 mg tablet,delayed 81 mg PO DAILY 09/24/21 09/24/21 release cetirizine 10 mg tablet (Zyrtec) 10 mg PO DAILY PRN 09/24/21 09/24/21 ursodiol 500 mg tablet 500 mg PO BID 09/24/21 09/24/21 Previous Rx's Medication Instructions Recorded albuterol sulfate 90 mcg/actuation 2 puff inhalation Q4-6H PRN 06/13/22 aerosol inhaler shortness of breath or wheezing #8.5 grams Allergies Allergy/AdvReac Type Severity Reaction Status Date / Time levofloxacin [From Levaquin] Allergy Verified 06/13/22 08:01 vancomycin [VANCOMYCIN] AdvReac Unknown [facility] Verified 06/13/22 08:01 UNLESS USED AT HALF THE RATE Patient History Medical History (Updated 06/13/22 @ 11:41 by Carolann Peoples DO) Biliary atresia History of mastitis Immunocompromised Sepsis Urinary tract infection Surgical History Liver transplanted Social History Smoking Status: Never smoker Smoking Status: Never smoker alcohol intake frequency: 0-2 drinks per day Substance Use Type: does not use Exam Initial Vital Signs Initial Vital Signs: Vital Signs Pulse Rate 130 H 06/13/22 07:55 Respiratory Rate 25 H 06/13/22 07:55 Pulse Oximetry 97 06/13/22 07:55 GENERAL: Alert pleasant 31-year-old female sitting upright appears uncomfortable HEENT: Head atraumatic,EOMI, pupils reactive, face symmetric, moist mucous membranes CARDIOVASCULAR: Tachycardic regular RESPIRATORY: Breath sounds equal bilaterally, no wheezes rales or rhonchi. ABDOMEN: Soft, nontender. Normoactive bowel sounds all 4 quadrants. No guarding or rebound. EXTREMITIES: Normal range of motion, no clubbing or edema. Neurovascularly intact NEUROLOGICAL: Alert and oriented x4.Normal gait and speech. Cranial nerves II through XII grossly intact. SKIN: Warm, dry, no laceration, no petechiae, no rashes or lesions. Course Orders Ordered: Discontinued Medications Acetaminophen (Acetaminophen 325 Mg Tablet) 650 mg PO NOW ONE Stop: 06/13/22 09:21 Last Admin: 06/13/22 09:26 Dose: 650 mg Documented By: KB Al Hydrox/Mg Hydrox/Simethicone (Mag Hydrox/Alum/Simeth 30 Ml Udc) 30 ml PO NOW ONE Stop: 06/13/22 10:42 Last Admin: 06/13/22 11:12 Dose: 30 ml Documented By: MLM Albuterol (Albuterol 2.5 Mg/3 Ml Neb (Adult)) 2.5 mg INH NOW ONE Stop: 06/13/22 10:47 Last Admin: 06/13/22 11:13 Dose: 2.5 mg Documented By: DAVID Sodium Chloride (Normal Saline 0.9%) 1,000 mls @ 150 mls/hr IV CONT ODIN Last Admin: 06/13/22 09:16 Dose: Not Given Documented By: MLNirmal Sodium Chloride (Normal Saline 0.9%) 1,000 mls @ 1,000 mls/hr IV BOLUS ONE Stop: 06/13/22 09:41 Last Infusion: 06/13/22 11:13 Dose: 0 mls/hr Documented By: Admin: 06/13/22 09:18 Dose: 1,000 mls/hr Documented By: DAVID Vital Signs Vital signs: Vital Signs - 8 hr 06/13/22 08:02 06/13/22 07:55 06/13/22 08:00 Temperature 98.7 F Pulse Rate 132 H 130 H Respiratory Rate 28 H 25 H Blood Pressure 120/72 117/62 Pulse Oximetry 97 97 Oxygen Delivery Method Room Air 06/13/22 08:00 Temperature Pulse Rate 114 H Respiratory Rate 20 Blood Pressure Pulse Oximetry 98 Oxygen Delivery Method MDM - Chest Pain Lab Data Result diagrams: 06/13/22 08:00 06/13/22 08:00 Labs: Lab Results 06/13/22 06/13/22 06/13/22 Range/Units 08:00 08:00 08:00 WBC 14.4 H (4.5-11.0) X10^3/uL RBC 4.50 (4.0-5.2) X10^6/uL Hgb 13.6 (12.0-16.0) g/dL Hct 40.9 (36-46) % MCV 90.8 (80-100) fL MCH 30.2 (26-34) PG MCHC 33.3 (30-36) % RDW 12.5 (11.6-14.8) % Plt Count 263 (150-400) X10^3/uL Neut % (Auto) 87.6 H (50-75) % Lymph % (Auto) 5.4 L (25-40) % [place] % (Auto) 6.3 (3-14) % Eos % (Auto) 0.4 L (2-4) % Baso % (Auto) 0.3 (0-2) % Neut # (Auto) 04897 H (8610-9549) /uL Lymph # (Auto) 800 L (8973-5848) /uL [place] # (Auto) 900 (0-900) /uL Eos # (Auto) 100 (0-450) /uL Baso # (Auto) 0 (0-100) /uL PT 13.2 H (10.1-12.7) SECONDS INR 1.2 (0.9-1.3) APTT 34 (26-36) SECONDS D-Dimer 249 (<500) ng/ml Sodium 136 L (137-145) mmol/L Potassium 4.4 (3.4-5.1) mmol/L Chloride 102 (98-107) mmol/L Carbon Dioxide 22 (22-32) mmol/L BUN 12 (7-17) mg/dL Creatinine 0.53 (0.52-1.04) mg/dL Estimated GFR > 60 (>60) mL/min BUN/Creatinine Ratio 22.6 H (6-22) Glucose 109 H (70-100) mg/dL Lactate (0.7-2.1) mmol/L Calcium 10.2 (8.4-10.2) mg/dL Total Bilirubin 1.0 (0.2-1.3) mg/dL AST 23 (14-36) IU/L ALT 18 (<35) IU/L Alkaline Phosphatase 110 (38-126) U/L Total Creatine Kinase 36 (30-135) U/L CK-MB (CK-2) TNP CK-MB (CK-2) Rel Index TNP Troponin I < 0.012 (0.01-0.034) ng/mL NT-Pro-B Natriuret Pep 78 (<125) pg/mL Total Protein 8.0 (6.3-8.2) g/dL Albumin 4.7 (3.5-5.0) g/dL Globulin 3.3 (1.7-4.1) g/dL Albumin/Globulin Ratio 1.4 (1.0-2.8) Lipase 34 (23-300) U/L Procalcitonin 0.06 (<0.5) ng/mL Serum , Qual (Negative) 06/13/22 06/13/2206/13/23 Range/Units 08:00 09:00 10:45 WBC (4.5-11.0) X10^3/uL RBC (4.0-5.2) X10^6/uL Hgb (12.0-16.0) g/dL Hct (36-46) % MCV (80-100) fL MCH (26-34) PG MCHC (30-36) % RDW (11.6-14.8) % Plt Count (150-400) X10^3/uL Neut % (Auto) (50-75) % Lymph % (Auto) (25-40) % [place] % (Auto) (3-14) % Eos % (Auto) (2-4) % Baso % (Auto) (0-2) % Neut # (Auto) (6838-8027) /uL Lymph # (Auto) (3321-5375) /uL [place] # (Auto) (0-900) /uL Eos # (Auto) (0-450) /uL Baso # (Auto) (0-100) /uL PT (10.1-12.7) SECONDS INR (0.9-1.3) APTT (26-36) SECONDS D-Dimer (<500) ng/ml Sodium (137-145) mmol/L Potassium (3.4-5.1) mmol/L Chloride (98-107) mmol/L Carbon Dioxide (22-32) mmol/L BUN (7-17) mg/dL Creatinine (0.52-1.04) mg/dL Estimated GFR (>60) mL/min BUN/Creatinine Ratio (6-22) Glucose (70-100) mg/dL Lactate 0.9 (0.7-2.1) mmol/L Calcium (8.4-10.2) mg/dL Total Bilirubin (0.2-1.3) mg/dL AST (14-36) IU/L ALT (<35) IU/L Alkaline Phosphatase (38-126) U/L Total Creatine Kinase (30-135) U/L CK-MB (CK-2) CK-MB (CK-2) Rel Index Troponin I < 0.012 (0.01-0.034) ng/mL NT-Pro-B Natriuret Pep (<125) pg/mL Total Protein (6.3-8.2) g/dL Albumin (3.5-5.0) g/dL Globulin (1.7-4.1) g/dL Albumin/Globulin Ratio (1.0-2.8) Lipase (23-300) U/L Procalcitonin (<0.5) ng/mL Serum , Qual Negative (Negative) ECG Data Interpretation: Sinus tachycardia rate 113 AK interval 124 QRS 80 QTC 433 T-wave inversion noted in lead 3 slightly more pronounced than it was in 2018, no ST elevations no AK depression MDM Narrative Medical decision making narrative: Patient has a history of liver transplant presenting today with chest pain and tightness. Blood does show mild leukocytosis with left shift but lactic acid and procalcitonin are negative. CT chest does not show any pulmonary embolism or acute process CT abdomen pelvis shows stable findings. I did a bedside ultrasound which does not show any pericardial effusion. Possible pericarditis but no ST elevation or AK depression. Offered Toradol but said that she did not want Toradol. She was given 1 L of IV fluids and Tylenol which seemed to help her heart rate. She would like some Maalox she continues described as tight ness. 2- troponins. She is given albuterol she says kind of helps. Her heart rate actually did improve into the 90s however started increasing again after albuterol. She is not hypoxic. Her lung sounds are clear. We discussed about if her symptoms return at any time to return to the emergency department Differential diagnosis: Pneumothorax, pulmonary embolism, acute coronary syndrome, pneumonia, pericarditis, myocarditis Discharge Plan Departure Patient Disposition: Home Clinical Impression: Atypical chest pain Instructions: DI for Atypical Chest Pain Activity Restrictions/Additional Instructions: *You have been diagnosed with atypical chest pain *What to do: At this time your workup in the emergency department is overall reassuring. However if anything should worsen please return to the emergency department immediately. *Continue to take medications as directed Albuterol 1-2 puffs every 4 hours if needed for chest tightness or shortness breath --> SENT TO [facility] *Follow up with your primary care provider in 2-3 days or call [phone] *Return to ER if you should have increasing chest tightness shortness of breath fever palpitations dizziness or any new, worsening or concerning symptoms Prescriptions: New albuterol sulfate 90 mcg/actuation HFA aerosol inhaler 2 puff inhalation Q4-6H PRN (Reason: shortness of breath or wheezing) Qty: 8.5 0RF No Action tacrolimus 1 MG capsule 3.5 cap PO Q12H Qty: 0 multivitamin [Multiple Vitamins] 1 EACH tablet 1 tab PO QDAY Qty: 0 ferrous sulfate [Iron (ferrous sulfate)] 325 MG tablet 325 mg PO QDAY Qty: 0 cholecalciferol (vitamin D3) [Vitamin D3] 2,000 UNIT capsule 2,000 unit PO QDAY Qty: 0 cetirizine [Zyrtec] 10 mg tablet 10 mg PO DAILY PRN aspirin 81 mg tablet,delayed release (DR/EC) 81 mg PO DAILY ursodiol 500 mg tablet 500 mg PO BID Label Comments: TAKE 1 TABLET BY MOUTH TWICE DAILY nitrofurantoin macrocrystal [Macrodantin] 100 mg Capsule 100 mg PO BEDTIME PRN (Reason: Sexual Activity) Label Comments: for use only after sexual activity magnesium oxide-Mg AA chelate [Kq-Moip-Itdilll] 133 mg Tablet 133 mg PO BID Referrals: ProviderKendall [Primary Care Provider] - Stand Alone Forms: Patient Portal/API
--- NOTE | 2022-06-13 08:09 | DI.CT.S_ITS ---
PROCEDURE: CT ANGIO CHEST PE PROTOCOL INDICATIONS: sob TECHNIQUE: After the administration of intravenous contrast, 2 mm thick sections acquired from the pulmonary apices to the posterior costophrenic angles. 3-dimensional maximum intensity projection (MIP) coronal and sagittal reformats were then acquired through the thorax. For radiation dose reduction, the following was used: automated exposure control, adjustment of mA and/or kV according to patient size. COMPARISON: [facility], CR, XR CHEST 1V, 06/13/2022, 8:02. FINDINGS: Image quality: Excellent. Pulmonary arteries: Pulmonary arteries are normal in size, and demonstrate no intraluminal filling defects to suggest central pulmonary embolism. Lungs and pleura: Lungs are clear. No pleural effusions or pneumothorax. Central and peripheral airways are patent. Mediastinum: Heart size is normal, without pericardial effusion. No mediastinal or hilar adenopathy. Thoracic aorta is normal in caliber and enhancement. Esophagus is normal in caliber, without hiatal hernia. Bones and chest wall: No suspicious bony lesions. Ribs and thoracic spine appear intact throughout. Thyroid gland is unremarkable. No axillary or supraclavicular adenopathy. Abdomen: Hepatic postsurgical changes are present. Pneumobilia is noted. Otherwise, visualized upper abdominal solid organs appear normal in the early arterial phase of enhancement. IMPRESSION: Lungs are clear. No pulmonary embolism. Dictated by: Azul Ren M.D. on 06/13/2022 at 10:12 Approved by: Azul Ren M.D. on 06/13/2022 at 10:13
--- NOTE | 2022-06-13 08:09 | DI.CT.S_ITS ---
PROCEDURE: CT ABDOMEN PELVIS W CON INDICATIONS: hx liver transplant epigastric pain TECHNIQUE: After the administration of oral and IV contrast, axial sections were acquired from the lung bases to the pubic symphysis. Coronal and sagittal reformats were performed. For radiation dose reduction, the following was used: automated exposure control, adjustment of mA and/or kV according to patient size. COMPARISON: US, ABDOMEN COMPLETE, 06/29/2017, 11:43. FINDINGS: Image quality: Excellent. Lung bases: Unremarkable. Heart: No significant findings. ABDOMEN: Liver: Liver is enlarged measuring 18.6 cm. Pneumobilia is present. Multiple surgical clips are present. Gallbladder: Not visualized. Biliary ducts: Unremarkable. Pancreas: Unremarkable. Spleen: Unremarkable. Adrenal Glands: Unremarkable. Kidneys and Ureters: Unremarkable. Stomach and Bowel: Stomach, small bowel loops, and colon are unremarkable. Prominent colonic stool is present. Peritoneum: No abnormal intraperitoneal fluid. No free air. Ventral Wall: No hernia. Abdominal Nodes: No retroperitoneal or mesenteric adenopathy by size criteria. Vessels: Aorta and inferior vena cava are normal in size. PELVIS: Pelvic Organs: Unremarkable. Bladder: Unremarkable. Pelvic Nodes: No enlarged lymph nodes. Miscellaneous: No inguinal hernias are seen. Bones: Unremarkable. IMPRESSION: Postsurgical hepatic changes. Pneumobilia is present. Prominent colonic stool without obstruction. Dictated by: Azul Ren M.D. on 06/13/2022 at 10:08 Approved by: Azul Ren M.D. on 06/13/2022 at 10:11
[2022-06-13 08:10] LABS: Add Manual Diff / Slide Review NO; Basophils Absolute Auto 0 /uL (0-100); Basophils Percent Auto 0.3 % (0-2); Eosinophils Absolute Auto 100 /uL (0-450); Eosinophils Percent Auto 0.4 % (2-4); Hematocrit 40.9 % (36-46); Hemoglobin 13.6 g/dL (12.0-16.0); Lymphocytes Absolute Auto 800 /uL (1100-4500); Lymphocytes Percent Auto 5.4 % (25-40); Mean Corpuscular HGB Conc 33.3 % (30-36); Mean Corpuscular Hemoglobin 30.2 PG (26-34); Mean Corpuscular Volume 90.8 fL (80-100); Monocytes Absolute Auto 900 /uL (0-900); Monocytes Percent Auto 6.3 % (3-14); Neutrophils Absolute Auto 12600 /uL (1500-7000); Neutrophils Percent Auto 87.6 % (50-75); Platelet Count 263 X10^3/uL (150-400); Red Cell Distribution Width 12.5 % (11.6-14.8); White Blood Cell Count 14.4 X10^3/uL (4.5-11.0)
[2022-06-13 08:19] LABS: INR 1.2 (0.9-1.3); Prothrombin Time 13.2 SECONDS (10.1-12.7)
[2022-06-13 08:21] LABS: D Dimer 249 ng/ml (<500)
[2022-06-13 08:22] LABS: PTT Partial Thromboplastin Tim 34 SECONDS (26-36)
[2022-06-13 08:24] LABS: Alanine Aminotransferase 18 IU/L (<35); Albumin 4.7 g/dL (3.5-5.0); Albumin Globulin Ratio 1.4 (1.0-2.8); Alkaline Phosphatase 110 U/L (38-126); Aspartate Aminotransferase 23 IU/L (14-36); BUN Creatinine Ratio 22.6 (6-22); Blood Urea Nitrogen 12 mg/dL (7-17); Calcium 10.2 mg/dL (8.4-10.2); Carbon Dioxide 22 mmol/L (22-32); Chloride 102 mmol/L (98-107); Creatine Kinase 36 U/L (30-135); Estimated Glomerular Filt Rate > 60 mL/min (>60); Globulin 3.3 g/dL (1.7-4.1); Glucose 109 mg/dL (70-100); HEMOLYSIS 19 (0-50); Lipase 34 U/L (23-300); Potassium 4.4 mmol/L (3.4-5.1); Sodium 136 mmol/L (137-145)
[2022-06-13 08:36] LABS: NT-proBNP (BNP-Adult 18+) 78 pg/mL (<125); Troponin I < 0.012 ng/mL (0.01-0.034)
[2022-06-13 08:40] LABS: Procalcitonin 0.06 ng/mL (<0.5)
[2022-06-13 09:10] LABS: Lactate (Lactic Acid) 0.9 mmol/L (0.7-2.1)
[2022-06-13] MEDS: SODIUM CHLORIDE 0.9% 1,000 ML 1000 ML IV (09:18)
[2022-06-13] MEDS: ACETAMINOPHEN 325 MG TABLET 650 MG PO (09:26)
[2022-06-13 09:30] LABS: Pregnancy Test Serum,Qual Negative (Negative)
[2022-06-13] MEDS: MAG HYDROX/ALUM/SIMETH 30 ML UDC PO (11:12)
[2022-06-13] MEDS: ALBUTEROL 2.5 MG/3 ML NEB (ADULT) INH (11:13)
[2022-06-13 11:18] LABS: Troponin I < 0.012 ng/mL (0.01-0.034)
--- NOTE | 2022-06-13 11:29 | RT ---
pt jose maurice well, on room air with no distress noted
== END 2022-06-13 11:55 | disposition home or self-care (01) ==
PROVIDERS: Emergency Provider Emergency Medicine; Family Provider Internal Medicine
DX: R07.89 Other chest pain (principal)
CPT/HCPCS: 36415; 71045; 71275; 74177; 80053; 82550; 83605; 83690; 83880; 84145; 84484; 84703; 85025; 85379; 85610; 85730; 93005; 93010; 94640; 99284; J7613; Q9967

== ENCOUNTER → 2022-07-05 08:24 | Outpatient (CLI) | payer OTHER, SELFPAY ==
[2022-07-05 09:03] LABS: INR 1.2 (0.9-1.3); Prothrombin Time 13.8 SECONDS (10.1-12.7)
[2022-07-05 09:09] LABS: Alanine Aminotransferase 443 IU/L (<35); Albumin 4.3 g/dL (3.5-5.0); Albumin Globulin Ratio 1.5 (1.0-2.8); Alkaline Phosphatase 213 U/L (38-126); Aspartate Aminotransferase 486 IU/L (14-36); BUN Creatinine Ratio 15.8 (6-22); Bilirubin Total 1.3 mg/dL (0.2-1.3); Blood Urea Nitrogen 9 mg/dL (7-17); Calcium 8.9 mg/dL (8.4-10.2); Carbon Dioxide 26 mmol/L (22-32); Chloride 103 mmol/L (98-107); Estimated Glomerular Filt Rate > 60 mL/min (>60); Globulin 2.8 g/dL (1.7-4.1); Glucose 90 mg/dL (70-100); HEMOLYSIS < 15 (0-50); Magnesium 1.7 mg/dL (1.6-2.3); Phosphorous 4.3 mg/dL (2.5-4.5); Potassium 4.5 mmol/L (3.4-5.1); Sodium 136 mmol/L (137-145); Total Protein 7.1 g/dL (6.3-8.2)
[2022-07-06 04:39] LABS: Tacrolimus 3.2 ng/mL (2.0-20.0)
== END ==
PROVIDERS: Surgery; Family Provider Internal Medicine; Referring Provider Registered Nurse Perinatal; Visit Provider Registered Nurse Perinatal
DX: O09.90 Supervision of high risk pregnancy, unspecified, unspecified trimester (principal); Z3A.00 Weeks of gestation of pregnancy not specified
CPT/HCPCS: 36415; 80053; 80197; 83735; 84100; 85610

== ENCOUNTER → 2022-07-11 08:40 | Outpatient (CLI) | payer OTHER, SELFPAY ==
[2022-07-11 11:12] LABS: Add Manual Diff / Slide Review NO; Basophils Absolute Auto 0 /uL (0-100); Basophils Percent Auto 0.6 % (0-2); Eosinophils Absolute Auto 200 /uL (0-450); Eosinophils Percent Auto 3.8 % (2-4); Hematocrit 37.4 % (36-46); Hemoglobin 12.5 g/dL (12.0-16.0); Lymphocytes Absolute Auto 1600 /uL (1100-4500); Lymphocytes Percent Auto 31.9 % (25-40); Mean Corpuscular HGB Conc 33.5 % (30-36); Mean Corpuscular Hemoglobin 29.8 PG (26-34); Mean Corpuscular Volume 88.9 fL (80-100); Monocytes Absolute Auto 400 /uL (0-900); Monocytes Percent Auto 7.6 % (3-14); Neutrophils Absolute Auto 2900 /uL (1500-7000); Neutrophils Percent Auto 56.1 % (50-75); Platelet Count 242 X10^3/uL (150-400); Red Blood Cell Count 4.21 X10^6/uL (4.0-5.2); Red Cell Distribution Width 12.7 % (11.6-14.8); White Blood Cell Count 5.1 X10^3/uL (4.5-11.0)
[2022-07-11 11:35] LABS: INR 1.1 (0.9-1.3); Prothrombin Time 12.7 SECONDS (10.1-12.7)
[2022-07-11 11:50] LABS: Alanine Aminotransferase 70 IU/L (<35); Albumin 4.3 g/dL (3.5-5.0); Albumin Globulin Ratio 1.5 (1.0-2.8); Alkaline Phosphatase 150 U/L (38-126); Aspartate Aminotransferase 27 IU/L (14-36); BUN Creatinine Ratio 22.2 (6-22); Bilirubin Total 0.7 mg/dL (0.2-1.3); Blood Urea Nitrogen 12 mg/dL (7-17); Calcium 9.2 mg/dL (8.4-10.2); Carbon Dioxide 25 mmol/L (22-32); Chloride 103 mmol/L (98-107); Estimated Glomerular Filt Rate > 60 mL/min (>60); Globulin 2.8 g/dL (1.7-4.1); Glucose 81 mg/dL (70-100); HEMOLYSIS < 15 (0-50); Magnesium 1.4 mg/dL (1.6-2.3); Phosphorous 3.8 mg/dL (2.5-4.5); Sodium 139 mmol/L (137-145); Total Protein 7.1 g/dL (6.3-8.2)
[2022-07-11 11:51] LABS: Potassium 4.5 mmol/L (3.4-5.1)
[2022-07-12 08:09] LABS: EBV EBNA Antibody IgG < 18.0 U/mL (0.0-17.9); EBV Virus IgM Ab < 36.0 U/mL (0.0-35.9)
[2022-07-12 11:29] LABS: Tacrolimus 8.4 ng/mL (2.0-20.0)
[2022-07-13 18:53] LABS: CMV DNA, Quant Real Time PCR Negative (Negative)
[2022-07-15 13:35] LABS: Hepatitis B Virus HBV DNA not detected IU/mL (.)
== END ==
PROVIDERS: Family Provider Internal Medicine; Referring Provider Internal Medicine; Visit Provider Internal Medicine
DX: Z94.4 Liver transplant status (principal)
CPT/HCPCS: 36415; 80053; 80197; 83735; 84100; 85025; 85610; 86664; 86665; 87497; 87522

== ENCOUNTER → 2022-07-18 09:51 | Outpatient (CLI) | payer OTHER, SELFPAY ==
[2022-07-18 10:20] LABS: Add Manual Diff / Slide Review NO; Basophils Absolute Auto 0 /uL (0-100); Basophils Percent Auto 0.7 % (0-2); Eosinophils Absolute Auto 200 /uL (0-450); Eosinophils Percent Auto 3.7 % (2-4); Hematocrit 37.1 % (36-46); Hemoglobin 12.1 g/dL (12.0-16.0); Lymphocytes Absolute Auto 1500 /uL (1100-4500); Lymphocytes Percent Auto 27.5 % (25-40); Mean Corpuscular HGB Conc 32.5 % (30-36); Mean Corpuscular Hemoglobin 29.1 PG (26-34); Mean Corpuscular Volume 89.4 fL (80-100); Monocytes Absolute Auto 400 /uL (0-900); Monocytes Percent Auto 6.9 % (3-14); Neutrophils Absolute Auto 3300 /uL (1500-7000); Neutrophils Percent Auto 61.2 % (50-75); Platelet Count 279 X10^3/uL (150-400); Red Blood Cell Count 4.15 X10^6/uL (4.0-5.2); Red Cell Distribution Width 12.8 % (11.6-14.8); White Blood Cell Count 5.3 X10^3/uL (4.5-11.0)
[2022-07-18 10:30] LABS: Alanine Aminotransferase 25 IU/L (<35); Albumin 4.2 g/dL (3.5-5.0); Albumin Globulin Ratio 1.6 (1.0-2.8); Alkaline Phosphatase 108 U/L (38-126); Aspartate Aminotransferase 23 IU/L (14-36); BUN Creatinine Ratio 28.1 (6-22); Bilirubin Total 0.6 mg/dL (0.2-1.3); Blood Urea Nitrogen 16 mg/dL (7-17); Calcium 9.2 mg/dL (8.4-10.2); Carbon Dioxide 26 mmol/L (22-32); Chloride 101 mmol/L (98-107); Estimated Glomerular Filt Rate > 60 mL/min (>60); Globulin 2.7 g/dL (1.7-4.1); Glucose 86 mg/dL (70-100); HEMOLYSIS < 15 (0-50); Magnesium 1.5 mg/dL (1.6-2.3); Phosphorous 3.8 mg/dL (2.5-4.5); Potassium 4.3 mmol/L (3.4-5.1); Sodium 137 mmol/L (137-145); Total Protein 6.9 g/dL (6.3-8.2)
[2022-07-19 11:36] LABS: Tacrolimus 8.3 ng/mL (2.0-20.0)
== END ==
PROVIDERS: Family Provider Internal Medicine; Referring Provider Surgery; Visit Provider Surgery
DX: Z94.4 Liver transplant status (principal)
CPT/HCPCS: 36415; 80053; 80197; 83735; 84100; 85025

== ENCOUNTER → 2022-10-09 08:17 | Outpatient (CLI) | payer OTHER, SELFPAY ==
[2022-10-09 08:43] LABS: Add Manual Diff / Slide Review NO; Basophils Absolute Auto 0 /uL (0-100); Basophils Percent Auto 0.4 % (0-2); Eosinophils Absolute Auto 200 /uL (0-450); Eosinophils Percent Auto 1.8 % (2-4); Hemoglobin 12.2 g/dL (12.0-16.0); Lymphocytes Absolute Auto 1600 /uL (1100-4500); Lymphocytes Percent Auto 17.2 % (25-40); Mean Corpuscular HGB Conc 33.7 % (30-36); Mean Corpuscular Hemoglobin 29.6 PG (26-34); Mean Corpuscular Volume 87.7 fL (80-100); Monocytes Absolute Auto 600 /uL (0-900); Monocytes Percent Auto 6.2 % (3-14); Neutrophils Absolute Auto 6800 /uL (1500-7000); Neutrophils Percent Auto 74.4 % (50-75); Platelet Count 248 X10^3/uL (150-400); Red Blood Cell Count 4.11 X10^6/uL (4.0-5.2); Red Cell Distribution Width 12.8 % (11.6-14.8); White Blood Cell Count 9.2 X10^3/uL (4.5-11.0)
[2022-10-09 08:54] LABS: INR 1.1 (0.9-1.3); Prothrombin Time 12.3 SECONDS (10.1-12.7)
[2022-10-09 09:20] LABS: Alanine Aminotransferase 17 IU/L (<35); Albumin 3.9 g/dL (3.5-5.0); Albumin Globulin Ratio 1.3 (1.0-2.8); Alkaline Phosphatase 84 U/L (38-126); Aspartate Aminotransferase 20 IU/L (14-36); Bilirubin Total 0.5 mg/dL (0.2-1.3); Blood Urea Nitrogen 8 mg/dL (7-17); Carbon Dioxide 24 mmol/L (22-32); Chloride 104 mmol/L (98-107); Estimated Glomerular Filt Rate > 60 mL/min (>60); Glucose 92 mg/dL (70-100); HEMOLYSIS < 15 (0-50); Magnesium 1.5 mg/dL (1.6-2.3); Phosphorous 4.3 mg/dL (2.5-4.5); Potassium 4.1 mmol/L (3.4-5.1); Sodium 136 mmol/L (137-145); Total Protein 6.9 g/dL (6.3-8.2)
== END ==
PROVIDERS: Family Provider Internal Medicine; Referring Provider Surgery; Visit Provider Surgery
DX: Z94.4 Liver transplant status (principal)
CPT/HCPCS: 36415; 80053; 80197; 83735; 84100; 85025; 85610